=== PATIENT | male | born 1965 | race Caucasian/White ===

== ENCOUNTER 2019-04-19 10:28 | Inpatient (IN) ==
[2019-04-19 11:08] LABS: Basophils # (auto) 0.03 K/uL (0-0.2); Basophils % (auto) 0.3 %; Eosinophils # (auto) 0.02 K/uL (0-0.5); Eosinophils % (auto) 0.2 %; Hematocrit (blood only) 49.8 % (42-52); Hemoglobin 17.8 g/dL (14.0-18.0); Immature Granulocytes # (auto) 0.02 K/uL (0.00-0.02); Immature Granulocytes % (auto) 0.2 %; Lymphocytes % (auto) 16.9 %; Mean Corpuscular Hgb Conc 35.7 g/dL (32-36); Mean Corpuscular Volume 88.8 fL (80-100); Mean Platelet Volume 11.7 fL (7.4-10.4); Monocytes # (auto) 0.95 K/uL (0.11-0.59); Neutrophils # (auto) 6.84 K/uL (1.4-6.5); Neutrophils % (auto) 72.4 %; Platelet Count 226 K/uL (130-400); RDW Coefficient of Variation 12.6 % (11.5-14.5); RDW Standard Deviation 40.6 fL (36.4-46.3); Red Blood Count 5.61 M/uL (4.7-6.1); White Blood Count 9.46 K/uL (4.8-10.8)
--- NOTE | 2019-04-19 11:12 | XRay Report ---
XR chest 1V portable CLINICAL HISTORY: 54 years-old Male presenting with Poss. collapsed lung . TECHNIQUE: Portable upright AP view of the chest was obtained. COMPARISON: 08/19/2013. FINDINGS: Cardiomediastinal silhouette normal. Large right pneumothorax with decreased aeration of the right yonatan ng. Left lung and pleural space clear. No mediastinal shift at this time. Degenerative changes of the thoracic spine. Upper abdomen normal. IMPRESSION: 1. Large right pneumothorax occupying at least 50% of the right hemithorax. Recommend drainage. No e vidence of tension at this time. The report will be called/faxed according to standard departmental protocol for a critical finding. Electronically signed by: Magdaleno Macario M.D. 04/19/2019 11:10 AM
[2019-04-19 11:31] LABS: Alanine Aminotransferase 48 U/L (12-78); Albumin Level 4.5 gm/dl (3.4-5.0); Aspartate Aminotransferase 25 U/L (15-37); BUN Creatinine Ratio 15.5 (10-20); Blood Urea Nitrogen 18 mg/dl (7-18); Calcium 9.4 mg/dl (8.5-10.1); Carbon Dioxide 23 mmol/L (21-32); Chloride 106 mmol/L (98-107); Creatinine Clr Calc Pharmacy 85.7 ml/min; Est GFR (African American) 79.2; Est GFR (Non-African American) 68.4; Glucose 113 mg/dl (70-99); Potassium 3.9 mmol/L (3.5-5.1); Sodium 136 mmol/L (136-145)
[2019-04-19] MEDS ORDERED: LIDOCAINE HCL 1% 20 ML VIAL ONE (11:31)
[2019-04-19 11:32] LABS: Albumin Globulin Ratio 1.4 (0.9-2); Alkaline Phosphatase 107 U/L (45-117); Bilirubin,Total 1.3 mg/dl (0.2-1); Globulin 3.3 gm/dl (2.5-4.0); Total Protein 7.8 gm/dl (6.4-8.2); Troponin I < 0.015 ng/ml (0-0.045)
[2019-04-19] MEDS ORDERED: MIDAZOLAM HCL 5 MG/ML VIAL ONE (11:37)
[2019-04-19] MEDS ORDERED: fentaNYL citrate 100 MCG/2 ML VIAL ONE (11:37)
[2019-04-19] MEDS ORDERED: MIDAZOLAM HCL 5 MG/ML 1 ML VIAL IV STA (11:43)
[2019-04-19] MEDS ORDERED: fentaNYL citrate 100 MCG/2 ML VIAL IV STA (11:44)
--- NOTE | 2019-04-19 11:55 | XRay Report ---
XR chest 1V portable CLINICAL HISTORY: chest tube insertion PNEUMOTHORAX COMPARISON STUDY: 04/19/2019 FINDINGS: The cardiac and distal contours remain stable. There is been interval insertion of a right- sided chest tube. The tip projects over the right posterior fourth rib. There is been reexpansion of the right lung. No significant pneumothorax is visualized. There are right midlung zone atelectatic c hanges.[ IMPRESSION: Interval insertion of a right-sided chest tube with evacuation of the right pneumothorax. Electronically signed by: Elliot Levy M.D. 04/19/2019 11:53 AM
[2019-04-19] MEDS ORDERED: MoRPHine SULFATE 2 MG/ML CARP ONE (11:56)
[2019-04-19 12:27] LABS: INR 1.1 (0.9-1.1); Partial Thromboplastin Ratio 0.9; Partial Thromboplastin Time 25.2 Seconds (21.0-31.0); Prothrombin Time 11.3 Seconds (9.0-12.0)
[2019-04-19] MEDS ORDERED: ONDANSETRON INJ 2 MG/ML 2 ML VIAL IV PRN (13:10)
[2019-04-19] MEDS ORDERED: MoRPHine SULFATE 2 MG/ML CARP IV PRN (13:10)
[2019-04-19] MEDS ORDERED: OXYCODONE HCL IR 5 MG TAB (IMMEDIATE RELEASE) ONE (13:39)
[2019-04-19] MEDS: OXYCODONE HCL IR 5 MG TAB (IMMEDIATE RELEASE) PO PRN ×2 (13:40→20:35)
--- NOTE | 2019-04-19 13:57 | History and Physical Report ---
DATE OF ADMISSION: 04/19/2019 REASON FOR ADMISSION: Spontaneous right pneumothorax. 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 He smoked very little for a short period of time, but quit when he was in his mid 20s. 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 This was just diagnosed via needle biopsy within the last few days. Six days ago after this biopsy, he became short of breath and had right-sided chest pain. A PET scan was performed in [place] for a workup and it was found that he had a large right pneumothorax. He actually felt a bit better in the last few days and his pulse oximetry was 93% on room air; however, he was a bit tachypneic and also was having right-sided chest pain, although improved. I had a long talk with the patient, his and multiple family members in the ER. I was asked to evaluate him for his pneumothorax. PAST MEDICAL HISTORY: 1. Light history of cigarette smoking for approximately 10 years, but quit 30 years ago. 2. History of apparent viral meningitis. 3. Hypercholesterolemia. 4. Hypertension. 5. Posterior circulation cerebrovascular accident. 6. 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 PAST SURGICAL HISTORY: Laryngoscopy with biopsy. MEDICATIONS: 1. Aspirin. 2. Atorvastatin. 3. Plavix. 4. Dronabinol. 5. Erenumab-aooe. 6. Lisinopril. 7. Lorazepam. 8. Pantoprazole. 9. Prednisone. 10. Promethazine. 11. Ranitidine. 12. Tizanidine. 13. Venlafaxine. ALLERGIES: No known drug allergies. SOCIAL HISTORY: The patient is originally from [place], studied at [employer]. He is to his of many years. He smoked cigarettes during age 13, smoked until he was about 23. He was a light smoker. 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 He recently celebrated his 25th anniversary there. FAMILY MEDICAL HISTORY: The patient has 1 child, no grandchildren and the child is healthy. REVIEW OF SYSTEMS: The patient states that he lost a great deal of weight after the stroke several years ago, but his weight has been relatively stable, in fact he feels like he has gained some weight. He denies any trouble with his vision; however, his hearing was impaired by his stroke and that has not changed. He has had no new focal deficits. He had trouble with his balance after his posterior circulation cerebrovascular accident. The patient denies palpitations. He has had right-sided chest pain as noted. He has had no night sweats. He does not have a productive cough. He is hoarse and does have difficulty with dysphagia. He denies any GI or complaints such as nausea or vomiting. He has had no peripheral edema. He has had no wound breakdown. PHYSICAL EXAMINATION: GENERAL: This is a 5 feet 11 inches, 232-pound male who is awake, alert and oriented. HEENT: His extraocular movements are intact. Pupils are equal, round, reactive. Sclerae are anicteric. Tongue is midline. I really cannot see any pharyngeal lesions. NECK: Supple. He has a questionably enlarged left supraclavicular lymph node. He really does not have much in the way of wheezing, but has markedly decreased breath sounds on the right, relative to the left. I do not detect tracheal deviation or neck vein distention. ABDOMEN: Obese, soft, nontender. He has no peripheral edema. No joint effusions. EXTREMITIES: He has easily palpable pedal pulses. NEUROLOGIC: He is awake, alert, oriented, has no real focal deficits. ASSESSMENT AND PLAN: Spontaneous (possibly iatrogenic) right pneumothorax. Given the size of this pneumothorax on chest x-ray (at least 70%), I am going to go ahead and insert a small bore chest tube and admit him. I am also going to ask radiation therapy to see him.
[2019-04-19] MEDS: ACETAMINOPHEN 1,000 MG/100 ML VIAL IV SCH ×3 (14:01→21:10)
--- NOTE | 2019-04-19 14:15 | Operative Report ---
DATE OF OPERATION: 04/19/2019 PREOPERATIVE DIAGNOSIS: Apparent spontaneous right pneumothorax. POSTOPERATIVE DIAGNOSIS: Apparent spontaneous right pneumothorax. PROCEDURE: Insertion of 20-Lithuanian chest tube in the Emergency Room. ANESTHESIA: Local. SURGEON: John Alicea MD EMS MANAGER: jamarcus Peckrk 2. ANESTHESIA: Local with sedation. SPECIFICS OF PROCEDURE: After a long discussion with the patient and his family, consent was obtained. We then gave the patient some Versed and fentanyl intravenously. When he reached in relax state, his right arm was raised above his head and his hand behind his head. He was comfortable. We then prepped and draped in usual sterile fashion and approximately the sixth interspace in the anterior axillary line, a skin wheal was raised with 25-gauge needle and 1% Xylocaine after appropriate timeout have been called. We then made a small incision with a knife and then using a larger needle to anesthetize the intercostal muscles and pleura above the rib. When we got air back on aspiration through the needle, the syringe removed and a soft J-tip guidewire inserted through the needle and the needle removed. A dilator was slid over the guidewire and the guidewire removed. A 20-Lithuanian chest tube with an obturator was then slid over the guidewire to about 20 cm and then the guidewire and inner cannula removed. There was a wallace of air, but it does not appear he has an air leak. We did not attach it to suction. A 0 silk was used to anchor to the patient's skin. Chest x-ray showed expansion of his lung. He tolerated it well except for some minor pain. He will be admitted to our service in the third floor. I attest to the content of the Intraoperative Record and any orders documented therein. Any exceptions are noted below. MTDD
--- NOTE | 2019-04-19 15:12 | Radiation OncologyConsultation ---
Date of Consultation April 19, 2019 Assessment & Plan (1) Squamous cell carcinoma of larynx: Assessment: Mr. 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 The patient recently underwent a biopsy under anesthesia by Dr. Myers and was discharged from the hospital. The patient did have a PET/CT scan completed on 04/18/2019 which confirmed his laryngeal cancer with no evidence of distant metastatic disease; the PET/CT scan did also show a large right pneumothorax. The patient was instructed to come to the emergency room for further work-up and evaluation. The patient was seen and evaluated by Dr. Alicea from thoracic surgery who placed a chest tube and admitted the patient to the hospital. We have been asked to evaluate the nelly ent regarding his head and neck cancer. Treatment Options: 1. Surgical resection 2. Radiation therapy with or without chemotherapy. Recommendations: I have recommended that the patient proceed with outpatient follow-up with the multidisciplinary head and neck tumor board at [facility] in [place], [place]. I would appreciate their recommendations and recommendations from Dr. Myers as well. I do believe the patient would be a potentially good candidate for radiation therapy and would like further guidance regarding the role of chemotherapy from the multidisciplinary head and neck tumor board. Alternatively, we would be in agreement if the tumor board recommends an appropriate surgical procedure for the patient. Plan: 1. We will follow-up with the recommendations from the multidisciplinary head and neck tumor board and coordinate care accordingly. Our contact information was given to the patient and his family in case there is any delay in his care and/or management. If the patient requires radiation therapy, we will see him back in follow-up evaluation to further discuss the role of radiation therapy and to make final recommendations. 2. Patient will continue with scheduled appointments and will plan to be seen at the multidisciplinary head and neck tumor board. 3. Patient's will follow up with ENT tomorrow. 4. Continue all other care as per primary medical service. 5. Patient and family encouraged to call us with any further questions or concerns. Present on Admission?: Yes History of Present Illness Reason for Consultation: Head and Neck Cancer History of Present Illness 03/14/2019. ENT consultation with Dr. Estrella for evaluation of dysphonia. Recommendation for direct flexible diagnostic laryngoscopy. 04/03/2019. Follow-up and diagnostic flexible laryngoscopy with Dr. Estrella. Dr. Estrella recommends biopsy underneath anesthesia for left vocal cord mass with CT of neck as well. 04/05/2019. CT of neck. IMPRESSION. 1. Known left vocal cord paralysis with asymmetric soft tissue fullness and mucosal irregularity involving the left vocal fold and the paraglottic fat. No evidence of cartilage erosion or extralaryngeal soft tissue mass. Imaging findings are nonspecific, but concerning for malignancy. Correlation with direct laryngoscopy and biopsy is recommended. 2. No suspicious cervical lymphadenopathy is identified. 04/12/2019. Microsuspension direct laryngoscopy with biopsy by Dr. Myers. Operative findings: Exophytic mass along left false and true vocal cord and anterior one third. Mass extends into subglottis. Larynx, left vocal cord, biopsy: Invasive squamous cell carcinoma, moderately differentiated, keratinizing. 04/18/2019. PET/CT. IMPRESSION 1. Large right pneumothorax. Minimal shift of the mid trachea and israel to the left suggesting a degree of tension. 2. Left vocal cord squamous cell carcinoma. No metabolically active lymph nodes or distant metastases. 04/19/2019. Patient urged to go to [facility] emergency department for evaluation of pneumothorax. 04/19/2019. Chest x-ray. IMPRESSION: 1. Large right pneumothorax occupying at least 50% of the right hemithorax. Recommend drainage. No evidence of tension at this time. 04/19/2019. Patient admitted with placement of chest tube underneath supervision of Dr. John Alicea. Currently, the patient continues to have some hoarseness. He denies any dysphasia. He states his shortness of breath has improved. He denies any significant cough. Allergies Allergy/AdvReac Type Severity Reaction Status Date / Time No Known Allergies Allergy Unverified 04/19/19 11:40 Home Medications Home Medications Medication Instructions Recorded Confirmed Type aspirin 81 mg PO QAM 04/19/19 04/19/19 History atorvastatin 80 mg PO HS 04/19/19 04/19/19 History clopidogrel 75 mg PO QAM 04/19/19 04/19/19 History dronabinol 5 mg PO AMPM 04/19/19 04/19/19 History erenumab-aooe 140 mg SUBCUT MONTHLY 04/19/19 04/19/19 History fludeoxyglucose F-18 8 mci IV MONTHLY 04/19/19 04/19/19 History lisinopril 10 mg PO QAM 04/19/19 04/19/19 History lorazepam 0.5 mg PO TID PRN 04/19/19 04/19/19 History omega [id number]-fish oil [Fish Oil] 1 cap PO TID 04/19/19 04/19/19 History pantoprazole 20 mg PO QAM 04/19/19 04/19/19 History prednisone 10 mg PO DAILY 04/19/19 04/19/19 History promethazine 25 mg PO Q6H PRN 04/19/19 04/19/19 History ranitidine HCl 150 mg PO QAM 04/19/19 04/19/19 History tizanidine 4 mg PO HS 04/19/19 04/19/19 History venlafaxine 75 mg PO HS 04/19/19 04/19/19 History Patient History Medical History CVA (cerebral vascular accident) Hypertension (Acute) High cholesterol (Acute) Viral meningitis (Acute) Cancer Social History Preferred Language: [place] Communication Ability: Effective 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 Beliefs That Will Affect Care: None Current Living Situation: Spouse Other Information That Helps Us Care for You: No Feels Safe at Home: Yes Safety Concerns: Feels Safe At This Time Smoking Status: Former smoker Tobacco Type: cigarettes Do You Dip or Chew Tobacco: No Second Hand Exposure: No Tobacco Cessation Education Requested by Patient: No Hx Alcohol Use: Yes Alcohol type: beer Hx Substance Use: No Review of Systems Review of Systems: All systems reviewed & are unremarkable except as noted in HPI & below Physical Exam Constitutional: WD/WN, vitals as above Eyes: PERRL, conjunctivae normal, anicteric sclerae ENMT: external ear and nose normal, oropharynx normal Neck: trachea midline, no thyromegaly No cervical adenopathy bilaterally Respiratory: normal respiratory effort, lungs clear to auscultation Cardiovascular: RRR, no murmur, no edema Psychiatric: A+Ox3, euthymic affect Results Additional Studies 04/19/19 10:56 ECG 12 lead EKG Stat XR chest 1V portable Stat 04/19/19 11:43 XR chest 1V portable Stat 04/20/19 06:00 XR chest 1V portable Stat Time Spent Attending This documentation has been prepared in part by, Анна Sorto PA-C, acting as a scribe under my direction. I, Nakul Rabago MD, personally performed the services described and have reviewed the documentation to ensure its accuracy. I spent 35 minutes for this consultation, which included obtaining clinical information, performing a physical exam, recommending a plan of action and answering questions. Greater than 50% of the time spent was direct face to face interaction with the patient.
[2019-04-19] MEDS ORDERED: LORazepam 0.5 MG TAB PO PRN (15:28)
[2019-04-19] MEDS ORDERED: PROMETHAZINE HCL 25 MG TAB PO PRN (15:28)
[2019-04-19] MEDS ORDERED: ERENUMAB AOOE 140 MG SQ SCH (15:30)
[2019-04-19] MEDS ORDERED: [UNRECOGNIZED DRUG - OTHER] IV SCH (15:30)
[2019-04-19] MEDS: KETOROLAC TROMETHAMINE 15 MG/ML VIAL IV PRN (17:25)
[2019-04-19] MEDS: DOCUSATE SODIUM 100 MG CAP PO SCH (20:35)
[2019-04-19] MEDS: DRONABINOL 2.5 MG CAP PO SCH (20:37)
[2019-04-19] MEDS: OMEGA-3 (PURIFIED FISH OIL) 1 GM CAP PO SCH (20:37)
[2019-04-19] MEDS ORDERED: TIZANIDINE HCL 4 MG TABLET PO SCH (21:00)
[2019-04-19] MEDS ORDERED: VENLAFAXINE HCL XR 75 MG CAPXR PO SCH (21:00)
[2019-04-19] MEDS ORDERED: AMITRIPTYLINE HCL 10 MG TAB PO SCH (21:00)
[2019-04-19] MEDS ORDERED: DRONABINOL 2.5 MG CAP PO SCH (21:00)
[2019-04-19] MEDS ORDERED: OMEGA-3 (PURIFIED FISH OIL) 1 GM CAP PO SCH (21:00)
[2019-04-19] MEDS ORDERED: ATORVASTATIN 40 MG TAB PO SCH (21:00)
[2019-04-20] MEDS: KETOROLAC TROMETHAMINE 15 MG/ML VIAL IV PRN (00:16)
[2019-04-20] MEDS: OXYCODONE HCL IR 5 MG TAB (IMMEDIATE RELEASE) PO PRN (04:49)
[2019-04-20] MEDS: ACETAMINOPHEN 1,000 MG/100 ML VIAL IV SCH (05:19)
[2019-04-20 05:58] VITALS: BP 132/84; PULSE 58; TEMP 97.9; O2SAT 94
--- NOTE | 2019-04-20 07:18 | XRay Report ---
XR chest 1V portable CLINICAL HISTORY: 54 years-old Male presenting with pneumothorax. TECHNIQUE: Portable upright AP view of the chest was obtained. COMPARISON: 04/19/2019. FINDINGS: Large bore right pleural drain positioned at the right mid upper lung, slightly retracted or replaced from prior exam. Mildly low lung volumes. Atherosclerosis of the aortic arch and tortuosity of the d escending thoracic aorta. Cardiac silhouette top normal in size. Minimal bibasilar opacities. Allowin g for portable technique and body habitus, no demonstrable pneumothorax on the current exam. No pleur al effusion. Degenerative changes of the thoracic spine. Upper abdomen normal. IMPRESSION: 1. Right pleural drain in place. No demonstrable pneumothorax allowing for portable technique and fidencio dy habitus. 2. Mildly low lung volumes with bibasilar atelectasis. Electronically signed by: Magdaleno Macario M.D. 04/20/2019 7:16 AM
--- NOTE | 2019-04-20 08:14 | XRay Report ---
XR chest 1V portable CLINICAL HISTORY: 54 years-old Male presenting with chest tube removal. TECHNIQUE: Portable upright AP view of the chest was obtained. COMPARISON: 04/20/2019 at 6:49 AM. FINDINGS: There has been interval removal of the right pleural drain. Cardiomediastinal silhouette unchanged. N o focal opacity. No large effusion or pneumothorax. Degenerative changes of the thoracic spine. Upper abdomen normal. IMPRESSION: 1. No pneumothorax status post removal of the right pleural drain. Electronically signed by: Magdaleno Macario M.D. 04/20/2019 8:12 AM
[2019-04-20] MEDS ORDERED: ACETAMINOPHEN 325 MG TAB PO SCH (08:15)
[2019-04-20] MEDS: DRONABINOL 2.5 MG CAP PO SCH (08:41)
[2019-04-20] MEDS: OMEGA-3 (PURIFIED FISH OIL) 1 GM CAP PO SCH (08:42)
[2019-04-20] MEDS: DOCUSATE SODIUM 100 MG CAP PO SCH (08:43)
[2019-04-20] MEDS ORDERED: LISINOPRIL 10 MG TAB PO SCH ×2 (09:00)
[2019-04-20] MEDS ORDERED: PANTOprazole 40 MG TAB PO SCH ×2 (09:00)
[2019-04-20] MEDS ORDERED: ATORVASTATIN 20 MG TAB PO SCH (09:00)
[2019-04-20] MEDS ORDERED: predniSONE 10 MG TABLET PO SCH (09:00)
[2019-04-20] MEDS ORDERED: ASPIRIN 81 MG CHEW PO SCH (09:00)
[2019-04-20] MEDS ORDERED: CLOPIDOGREL BISULFATE 75 MG TAB PO SCH (09:00)
--- NOTE | 2019-04-20 21:29 | Emergency Department Note ---
Entered by Sandra Sams acting as a scribe for History of Present Illness General Chief complaint: Shortness of Breath/Dyspnea Stated complaint: CHEST PAIN Time Seen by Provider: 04/19/19 11:00 Source: patient and family History of Present Illness Provider complaint: Shortness of breath Onset (ago): hour(s) Radiation: flank (right) Pain Consistency: + other (episode) Exacerbated By: + other (breathing) Associated symptoms: + cough (productive with clear sputum) and + fever/chills (intermittent fever) The patient is a 54 year old male who presents to the ED with complaints of an episode of shortness of breath that began last week. The patient states that he has pain on his right side that is exacerbated by breathing. The patient notes a productive cough with clear sputum and an intermittent fever. Patient states last week he had a biopsy of a lesion noted on his vocal cords. States the pain and trouble breathing started after that. Patient does note he has had a mild cough, nonproductive. Denies fevers or chills. States he does have chronic issues with his voice which is what prompted the investigation by ENT which led to discovery of a lesion on the vocal cords which prompted the biopsy. Patient underwent an outpatient PET scan yesterday to continue his evaluation for cancer, and was called today with the results of the PET scan that showed a pneumothorax and was instructed to immediately come to the emergency room. Home Medications Home Medications Medication Instructions Recorded Confirmed Type aspirin 81 mg PO QAM 04/19/19 04/19/19 History atorvastatin 80 mg PO HS 04/19/19 04/19/19 History clopidogrel 75 mg PO QAM 04/19/19 04/19/19 History dronabinol 5 mg PO AMPM 04/19/19 04/19/19 History erenumab-aooe 140 mg SUBCUT MONTHLY 04/19/19 04/19/19 History fludeoxyglucose F-18 8 mci IV MONTHLY 04/19/19 04/19/19 History lisinopril 10 mg PO QAM 04/19/19 04/19/19 History lorazepam 0.5 mg PO TID PRN 04/19/19 04/19/19 History omega 5-[id number]-pvu-fish oil [Fish Oil] 1 cap PO TID 04/19/19 04/19/19 History pantoprazole 20 mg PO QAM 04/19/19 04/19/19 History prednisone 10 mg PO DAILY 04/19/19 04/19/19 History promethazine 25 mg PO Q6H PRN 04/19/19 04/19/19 History ranitidine HCl 150 mg PO QAM 04/19/19 04/19/19 History tizanidine 4 mg PO HS 04/19/19 04/19/19 History venlafaxine 75 mg PO HS 04/19/19 04/19/19 History Allergies Allergy/AdvReac Type Severity Reaction Status Date / Time No Known Allergies Allergy Unverified 04/19/19 11:40 Past Med/Surg History Medical History CVA (cerebral vascular accident) Hypertension (Acute) High cholesterol (Acute) Viral meningitis (Acute) Cancer Social History Preferred Language: Estonian Communication Ability: Effective 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 and A total of 10 systems reviewed and were otherwise negative Physical Exam Vital Signs Vital Signs - 24 hr 04/19/19 10:38 04/19/19 10:48 04/19/19 10:51 Temperature 36.6 C Temperature Source Oral Sepsis Recent Fever Within 48 Hours No Sepsis Action Taken by Nursing No Action Required Pulse Rate 84 98 H Pulse Rate [Finger] 96 H Pulse Rate from SpO2 Sensor 99 H Respiratory Rate 20 24 17 Blood Pressure 150/106 H 178/109 H Blood Pressure [Right Arm] 178/109 H Blood Pressure Mean 120 132 Blood Pressure Mean [Right Arm] 132 Blood Pressure Position Sitting Pulse Oximetry 97 92 94 Oxygen Delivery Method Room Air Nasal Cannula Room Air Oxygen Flow Rate 2 04/19/19 10:53 04/19/19 10:58 04/19/19 11:00 Temperature Temperature Source Sepsis Recent Fever Within 48 Hours Sepsis Action Taken by Nursing Pulse Rate 97 H 94 H Pulse Rate [Finger] Pulse Rate from SpO2 Sensor 96 H 90 Respiratory Rate 23 16 Blood Pressure Blood Pressure [Right Arm] Blood Pressure Mean Blood Pressure Mean [Right Arm] Blood Pressure Position Pulse Oximetry 92 92 94 Oxygen Delivery Method Nasal Cannula Room Air Nasal Cannula Oxygen Flow Rate 2 2 04/19/19 11:01 04/19/19 11:10 04/19/19 11:16 Temperature Temperature Source Sepsis Recent Fever Within 48 Hours Sepsis Action Taken by Nursing Pulse Rate 97 H 93 H 100 H Pulse Rate [Finger] Pulse Rate from SpO2 Sensor 97 H 88 100 H Respiratory Rate 19 17 23 Blood Pressure 178/154 H 193/130 H Blood Pressure [Right Arm] Blood Pressure Mean 162 151 Blood Pressure Mean [Right Arm] Blood Pressure Position Pulse Oximetry 95 94 97 Oxygen Delivery Method Nasal Cannula Nasal Cannula Nasal Cannula Oxygen Flow Rate 2 2 2 04/19/19 11:20 04/19/19 11:30 Temperature Temperature Source Sepsis Recent Fever Within 48 Hours Sepsis Action Taken by Nursing Pulse Rate 88 80 Pulse Rate [Finger] Pulse Rate from SpO2 Sensor 84 80 Respiratory Rate 18 15 Blood Pressure Blood Pressure [Right Arm] Blood Pressure Mean Blood Pressure Mean [Right Arm] Blood Pressure Position Pulse Oximetry 96 95 Oxygen Delivery Method Nasal Cannula Nasal Cannula Oxygen Flow Rate 2 2 GENERAL: alert, well appearing, well nourished, no distress, non-toxic EYE EXAM: normal conjunctiva, PERRL and EOM's grossly intact OROPHARYNX: no exudate, no erythema, lips, buccal mucosa, and tongue normal and mucous membranes are moist, hoarse quality to voice. NECK: supple, no nuchal rigidity, no adenopathy, non-tender, no tracheal deviation LUNGS: No breath sounds heard over right chest. Left lung field clear without w/r/r. HEART: no murmurs, S1 normal and S2 normal ABDOMEN: abdomen soft, non-tender, normo-active bowel sounds, no masses, no rebound or guarding. BACK: Back is symmetrical on inspection and there is no deformity, no midline tenderness, no CVA tenderness. SKIN: no rashes and no bruising UPPER EXTREMITIES: upper extremities are grossly normal. FROM, nml pulses b/l. LOWER EXTREMITIES: No pitting edema. FROM, nml pulses b/l. NEURO EXAM: Normal sensorium, cranial nerves II-XII grossly intact, normal speech, no gross weakness of arms, no gross weakness of legs. Course 1101: Past medical records reviewed. The patient was evaluated in room A7. A complete history and physical exam was performed. 1120: I reevaluated the patient and updated him on his test results. 1124: Dr. Alicea came to to evaluate the patient. 1127: I discussed the case with Dr. Alicea- Thoracic Surgeon. He will evaluate the patient for further management. Consultations Consultation #1: I discussed the case with Dr. Alicea- Thoracic Surgeon. He will evaluate the patient for further management. Time: 11:27 Administered Medications Discontinued Medications Acetaminophen (Tylenol) 650 mg PO Q6H [facility] Stop: 05/20/19 08:14 Last Admin: 04/20/19 08:41 Dose: 650 mg Documented by: [id number] Amitriptyline HCl (Elavil) 20 mg PO HS [facility] Stop: 05/19/19 20:59 Last Admin: 04/19/19 20:36 Dose: 20 mg Documented by: [id number] Aspirin (Aspirin Chew) 81 mg PO QAM [facility] Stop: 05/20/19 08:59 Last Admin: 04/20/19 08:44 Dose: 81 mg Documented by: [id number] Atorvastatin Calcium (Lipitor) 80 mg PO [facility] Stop: 05/19/19 20:59 Last Admin: 04/19/19 20:36 Dose: 80 mg Documented by: [id number] [facility]) [facility] [place]: 05/20/19 08:59 Last Admin: 04/20/19 08:44 Dose: Not Given Documented by: [id number] Docusate Sodium (Colace) 100 mg PO BID [facility] Stop: 05/19/19 20:59 Last Admin: 04/20/19 08:43 Dose: 100 mg Documented by: [id number] Admin: 04/19/19 20:35 Dose: 100 mg Documented by: [id number] Dronabinol (Marinol) 5 mg PO BID [facility] Stop: 05/19/19 20:59 Last Admin: 04/20/19 08:41 Dose: 5 mg Documented by: [id number] Admin: 04/19/19 20:37 Dose: 5 mg Documented by: [id number] Fentanyl Citrate (Fentanyl Citrate) Confirm Administered Dose 100 mcg .ROUTE .STK-MED ONE Stop: 04/19/19 11:38 Last Increment: 04/19/19 11:42 Dose: 25 mcg Documented by: [id number] Fentanyl Citrate (Fentanyl Citrate) 25 mcg IV NOW STA Stop: 04/19/19 11:45 Last Admin: 04/19/19 11:54 Dose: Not Given Documented by: [id number] Fish Oil ([place]-3 (Purified Fish Oil)) 1 gm PO TID [facility] Stop: 05/19/19 20:59 Last Admin: 04/20/19 08:42 Dose: 1 gm Documented by: [id number] Admin: 04/19/19 20:37 Dose: 1 gm Documented by: [id number] Acetaminophen ([facility]) 1,000 mg in 100 mls @ 400 mls/hr IV Q8H [facility] Stop: 05/19/19 13:59 Last Infusion: 04/20/19 05:41 Dose: 0 mls/hr Documented by: [id number] Admin: 04/20/19 05:19 Dose: 400 mls/hr Documented by: [id number] Infusion: 04/19/19 21:28 Dose: 0 mls/hr Documented by: [id number] Admin: 04/19/19 21:10 Dose: 400 mls/hr Documented by: [id number] Admin: 04/19/19 14:25 Dose: Not Given Documented by: [id number] Infusion: 04/19/19 14:16 Dose: 0 mls/hr Documented by: [id number] Admin: 04/19/19 14:01 Dose: 400 mls/hr Documented by: [id number] Ketorolac Tromethamine (Toradol) 15 mg IV Q6H PRN PRN Reason: Pain Stop: 04/24/19 13:09 Last Admin: 04/20/19 00:16 Dose: 15 mg Documented by: [id number] Admin: 04/19/19 17:25 Dose: 15 mg Documented by: [id number] Lidocaine HCl (Xylocaine 1% (Local)) Confirm Administered Dose 20 ml .ROUTE .STK-MED ONE Stop: 04/19/19 11:32 Last Admin: 04/19/19 11:42 Dose: 20 ml Documented by: [id number] Lisinopril (Zestril) 10 mg PO DAILY [facility] Stop: 05/20/19 08:59 Last Admin: 04/20/19 08:42 Dose: 10 mg Documented by: [id number] Midazolam HCl (Versed) Confirm Administered Dose 10 mg .ROUTE .STK-MED ONE Stop: 04/19/19 11:38 Last Increment: 04/19/19 11:42 Dose: 2 mg Documented by: [id number] Midazolam HCl (Versed) 2 mg IV NOW STA Stop: 04/19/19 11:44 Last Admin: 04/19/19 11:54 Dose: Not Given Documented by: [id number] Morphine Sulfate (Morphine Sulfate) Confirm Administered Dose 2 mg .ROUTE .STK- MED ONE Stop: 04/19/19 11:57 Last Admin: 04/19/19 11:57 Dose: 2 mg Documented by: [id number] Oxycodone HCl (Roxicodone Immediate Rel) 5 mg PO Q6H PRN PRN Reason: Pain Stop: 05/03/19 13:09 Last Admin: 04/20/19 04:49 Dose: 5 mg Documented by: [id number] Admin: 04/19/19 20:35 Dose: 5 mg Documented by: [id number] Admin: 04/19/19 13:40 Dose: 5 mg Documented by: [id number] Oxycodone HCl (Roxicodone Immediate Rel) Confirm Administered Dose 5 mg .ROUTE .STK-MED ONE Stop: 04/19/19 13:40 Last Admin: 04/19/19 13:56 Dose: Not Given Documented by: [id number] Pantoprazole Sodium (Protonix) 40 mg PO DAILY [facility] Stop: 05/20/19 08:59 Last Admin: 04/20/19 08:42 Dose: 40 mg Documented by: [id number] Prednisone (Prednisone) 60 mg PO DAILY [facility]; Taper Stop: 05/05/19 08:59 Last Admin: 04/20/19 08:41 Dose: 60 mg Documented by: [id number] Ranitidine HCl (Zantac) 150 mg PO QAM [facility] Stop: 05/20/19 08:59 Last Admin: 04/20/19 08:42 Dose: 150 mg Documented by: [id number] Tizanidine HCl (Zanaflex) 4 mg PO HS [facility] Stop: 05/19/19 20:59 Last Admin: 04/19/19 20:37 Dose: 4 mg Documented by: [id number] Venlafaxine HCl (Effexor Extended Release) 75 mg PO HS [facility] Stop: 05/19/19 20:59 Last Admin: 04/19/19 20:36 Dose: 75 mg Documented by: [id number] Medical Decision Making Differential Diagnosis Differential diagnosis: Etiologies such as infections, reactive airway disease, COPD, pneumonia, pleural effusion, pulmonary edema, ARDS, pneumothorax, CHF, cardiac ischemia, cardiac tamponade, dysrhythmia, anemia, pulmonary embolism, musculoskeletal, gastrointestinal process, as well as others were entertained. Medical Records Attestation: I reviewed the patient's medical records. Home Medications Current Medication List: was personally reviewed by me Laboratory Data Attestation: I reviewed the patient's lab results. Result diagrams: 04/19/19 10:50 04/19/19 10:50 Lab Results 04/19/19 04/19/19 04/19/19 Range/Units 10:50 10:50 10:50 WBC 9.46 (4.8-10.8) K/uL RBC 5.61 (4.7-6.1) M/uL Hgb 17.8 (14.0-18.0) g/dL Hct 49.8 (42-52) % MCV 88.8 (80-100) fL MCH 31.7 (25-34) pg MCHC 35.7 (32-36) g/dL RDW Std Deviation 40.6 (36.4-46.3) fL RDW Coeff of [place] 12.6 (11.5-14.5) % Plt Count 226 (130-400) K/uL MPV 11.7 H (7.4-10.4) fL Immature Gran % (Auto) 0.2 % Neut % (Auto) 72.4 % Lymph % (Auto) 16.9 % [place] % (Auto) 10.0 % Eos % (Auto) 0.2 % Baso % (Auto) 0.3 % Immature Gran # (Auto) 0.02 (0.00-0.02) K/uL Neut # (Auto) 6.84 H (1.4-6.5) K/uL Lymph # (Auto) 1.60 (1.2-3.4) K/uL [place] # (Auto) 0.95 H (0.11-0.59) K/uL Eos # (Auto) 0.02 (0-0.5) K/uL Baso # (Auto) 0.03 (0-0.2) K/uL PT Cancelled INR Cancelled APTT Cancelled PTT Ratio Cancelled Sodium 136 (136-145) mmol/L Potassium 3.9 (3.5-5.1) mmol/L Chloride 106 (98-107) mmol/L Carbon Dioxide 23 (21-32) mmol/L Anion Gap 7.0 (3-11) BUN 18 (7-18) mg/dl Creatinine 1.19 (0.6-1.4) mg/dl Est Cr Clr Drug Dosing 85.7 ml/min Est GFR ( Amer) 79.2 Est GFR (Non-Af Amer) 68.4 BUN/Creatinine Ratio 15.5 (10-20) Glucose 113 H (70-99) mg/dl Calcium 9.4 (8.5-10.1) mg/dl Total Bilirubin 1.3 H (0.2-1) mg/dl AST 25 (15-37) U/L ALT 48 (12-78) U/L Alkaline Phosphatase 107 (45-117) U/L Troponin I < 0.015 (0-0.045) ng/ml Total Protein 7.8 (6.4-8.2) gm/dl Albumin 4.5 (3.4-5.0) gm/dl Globulin 3.3 (2.5-4.0) gm/dl Albumin/Globulin Ratio 1.4 (0.9-2) Specimen Hemolysis Imaging Data Radiologist's Impression: Radiology results as stated below per my review and the radiologist's interpretation: XR chest 1V portable (#1) CLINICAL HISTORY: 54 years-old Male presenting with Poss. collapsed lung . TECHNIQUE: Portable upright AP view of the chest was obtained. COMPARISON: 08/19/2013. FINDINGS: Cardiomediastinal silhouette normal. Large right pneumothorax with decreased aeration of the right lung. Left lung and pleural space clear. No mediastinal shift at this time. Degenerative changes of the thoracic spine. Upper abdomen normal. IMPRESSION: 1. Large right pneumothorax occupying at least 50% of the right hemithorax. Recommend drainage. No evidence of tension at this time. The report will be called/faxed according to standard departmental protocol for a critical finding. Electronically signed by: Magdaleno Macario M.D. 04/19/2019 11:10 AM XR chest 1V portable (#2) CLINICAL HISTORY: chest tube insertion PNEUMOTHORAX COMPARISON STUDY: 04/19/2019 FINDINGS: The cardiac and distal contours remain stable. There is been interval insertion of a right-sided chest tube. The tip projects over the right posterior fourth rib. There is been reexpansion of the right lung. No significant pneumothorax is visualized. There are right midlung zone atelectatic changes.[ IMPRESSION: Interval insertion of a right-sided chest tube with evacuation of the right pneumothorax. Electronically signed by: Elliot Levy M.D. 04/19/2019 11:53 AM ECG Data Attestation: I personally reviewed and interpreted this ECG as follows: Rate (beats per minute): 88 Rhythm: sinus with SA Findings: + other (normal interval) and + left axis deviation; no PAC, no PVC, no ST depression, no ST elevation, no acute ischemic change and no ectopy Blood Pressure Blood Pressure Findings: Elevated blood pressure Blood Pressure Disposition: further management by hospitalist KENNETH Benitez Patient referred to the ED after outpatient routine testing revealed large pneumothorax. Patient presented with complaints of chest pain or shortness of breath for 1 week ever since a biopsy of a lesion on the vocal cords performed to [facility]. Review of this operative note was performed. Immediate chest x- ray performed here which should confirm findings of large right pneumothorax. Patient hemodynamically stable, not hypoxic, no tracheal deviation, no crepitus of the chest wall, however did have minimal breath sounds to the right chest. No fevers chills, basic labs sent, and given daytime hours, patient's use of antiplatelet agents, and suspected timeframe of injury, I called and discussed the case with thoracic surgery, Dr. Mcnally who came and evaluated the patient at bedside. Dr. Alicea performed thoracostomy at bedside after discussion with patient and admitted the patient for continued monitoring due to his increased risk of expansion associated pulmonary edema. Patient hemodynamically stable in the emergency room. Labs reassuring. Patient tolerated procedure well. Impression & Plan Pneumothorax, Hypertension, Squamous cell carcinoma of larynx, Chest pain Discharge Plan Visit Data *Final* Discharge Date/Time: 04/19/19 12:30 Chief Complaint: Shortness of Breath/Dyspnea Stated Complaint: CHEST PAIN ED Provider: Astrid Hawthorne Discharge Problem: Pneumothorax, Hypertension, Squamous cell carcinoma of larynx, Chest pain Patient Disposition: Admitted As Inpatient Condition: Good Discharge Instructions Interventions: ED Discharge Assessment Last Done: 04/19/19 12:30 Discharge Problem: Pneumothorax Qualifiers: Pneumothorax type: postprocedural Qualified Code(s): J95.811 - Postprocedural pneumothorax Hypertension Qualifiers: Hypertension type: essential hypertension Qualified Code(s): I10 - Essential (primary) hypertension Chest pain Qualifiers: Chest pain type: other chest pain Qualified Code(s): R07.89 - Other chest pain The scribe's documentation has been prepared under my direction and personally reviewed by me in its entirety. I confirm that the note above accurately reflects all work, treatment, procedures, and medical decision making performed by me.
--- NOTE | 2019-04-21 01:32 | Discharge Summary ---
DISCHARGE DIAGNOSES: 1. Spontaneous/iatrogenic right pneumothorax. 2. 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 3. Status post cerebrovascular accident. HOSPITAL COURSE: This is a very nice 54-year-old male who suffered a cerebrovascular accident a few years ago, he has posterior circulation and was recently diagnosed with a squamous cell carcinoma of the supraglottic area. He states that he developed right chest pain and shortness of breath after this several days ago and was found to have a pneumothorax on PET scan yesterday. He presented to the Emergency Room and had at least a 70% pneumothorax. Given that, I felt it would be best if we placed a tube and a 20-[place] chest tube was placed in the Emergency Room without difficulty. He tolerated that quite well and really had very little in the way of pain. It looked like he was ready to go home after we drained it; however, he had a small air leak which resolved overnight. I removed his chest tube and his chest x-ray looked much improved on the morning after admission. He had been ambulating in the hallways, tolerating a regular diet. I went ahead and discharged him from the hospital and we will see him back in the office in a week with an x-ray for 1 more visit.
== END 2019-04-20 09:05 | disposition home or self-care (01) | DRG 201 ==
LOC: ED 10:28 → 3W 11:39

== ENCOUNTER 2019-05-26 20:49 | Observation (INO) ==
[2019-05-26 22:12] LABS: Basophils # (auto) 0.03 K/uL (0-0.2); Basophils % (auto) 0.3 %; Eosinophils # (auto) 0.14 K/uL (0-0.5); Eosinophils % (auto) 1.5 %; Hemoglobin 15.1 g/dL (14.0-18.0); Immature Granulocytes # (auto) 0.02 K/uL (0.00-0.02); Immature Granulocytes % (auto) 0.2 %; Lymphocytes # (auto) 1.61 K/uL (1.2-3.4); Lymphocytes % (auto) 16.8 %; Mean Corpuscular Hgb Conc 34.3 g/dL (32-36); Mean Corpuscular Volume 90.7 fL (80-100); Mean Platelet Volume 11.5 fL (7.4-10.4); Monocytes # (auto) 1.12 K/uL (0.11-0.59); Monocytes % (auto) 11.7 %; Neutrophils # (auto) 6.64 K/uL (1.4-6.5); Neutrophils % (auto) 69.5 %; Platelet Count 339 K/uL (130-400); RDW Standard Deviation 42.6 fL (36.4-46.3); Red Blood Count 4.85 M/uL (4.7-6.1); White Blood Count 9.56 K/uL (4.8-10.8)
[2019-05-26 22:28] LABS: INR 1.1 (0.9-1.1); Partial Thromboplastin Time 26.5 Seconds (21.0-31.0); Prothrombin Time 10.9 Seconds (9.0-12.0)
[2019-05-26 22:31] LABS: Alanine Aminotransferase 34 U/L (12-78); Albumin Level 3.3 gm/dl (3.4-5.0); Aspartate Aminotransferase 19 U/L (15-37); Blood Urea Nitrogen 17 mg/dl (7-18); Calcium 8.8 mg/dl (8.5-10.1); Carbon Dioxide 28 mmol/L (21-32); Chloride 102 mmol/L (98-107); Creatinine Clr Calc Pharmacy 112.1 ml/min; Est GFR (Non-African American) 89.8; Glucose 114 mg/dl (70-99); Magnesium 2.4 mg/dl (1.8-2.4); Potassium 3.6 mmol/L (3.5-5.1); Sodium 138 mmol/L (136-145)
[2019-05-26 22:38] LABS: Appearance Urine Clear (Clear); Bilirubin Urine Negative (Negative); Blood Urine Negative (Negative); Color Urine Dark Yellow; Glucose Urine UA Negative (Negative); Ketones Urine Trace (Negative); Leukocyte Esterase Urine Negative (Negative); Nitrite Urine Negative (Negative); Protein Urine Negative (Negative); Specific Gravity Urine 1.031 (1.000-1.030); Urobilinogen Urine Negative (Negative); pH Urine 5.5 (4.5-7.5)
[2019-05-26 22:41] LABS: Albumin Globulin Ratio 0.9 (0.9-2); Alkaline Phosphatase 99 U/L (45-117); Bilirubin,Total 0.6 mg/dl (0.2-1); Globulin 3.5 gm/dl (2.5-4.0); Total Protein 6.8 gm/dl (6.4-8.2); Troponin I < 0.015 ng/ml (0-0.045)
[2019-05-26] MEDS ORDERED: ALBUT/IPRATROP 3MG/0.5MG NEB 3 ML VIAL ONE (23:13)
[2019-05-27] MEDS ORDERED: PIPERACILL/TAZOBAC CONSULT ACTIVE PRN (00:28)
[2019-05-27] MEDS ORDERED: PIPERACILLIN/TAZOBACTAM 4.5 GM/120 ML BAG IV ONE (00:28)
[2019-05-27] MEDS ORDERED: ALBUT/IPRATROP 3MG/0.5MG NEB 3 ML VIAL NEB STA (01:21)
--- NOTE | 2019-05-27 01:22 | History & Physical Report ---
Date of Service May 27, 2019 Assessment & Plan (1) Recurrent syncope: Secondary to laryngeal irritation/cough symptoms hx laryngeal cancer ongoing chemoradiation Recent tracheostomy tube placement/replacement possible aspiration pneumonitis No sepsis. Rule out orthostasis, cardiac dysfunction hx CVA as per records hypertension, stable hyperlipidemia on statin Rx PVD as per records chronic migraine, symptoms at baseline mood disorder, at baseline past tobacco abuse OBS Medical telemetry Check orthostatic vitals TTE RE recurrent syncope Augmentin for aspiration pneumonitis Aspiration precautions Swallow eval Respiratory therapy consult for tracheostomy care education as per patient request DVT prophylaxis. Lovenox subcu Full code Patient's requesting updates from providers. Ms. Terrell Chappell, contact #[phone]. History of Present Illness Chief Complaint: recurrent syncope Primary Care Provider: Karley Morris DO History obtained from patient, family, and records. Limited history from patient secondary to tracheostomy. Medical history significant for laryngeal cancer undergoing chemoradiation, history pneumothorax, CVA, hypertension, hyperlipidemia, PVD, LORRIE as per records, chronic migraine, mood disorder, prediabetes as per records, past tobacco abuse. Patient found to have laryngeal cancer last March 2019. Currently receiving chemoradiation. Patient admitted at [facility] from May 17-2018 for elective tracheostomy/PEG tube placement in anticipation of airway, swallowing problems following radiotherapy. Stay complicated by inadvertent tracheostomy tube false tracking and left pneumothorax/pneumoperitoneum status post chest tube placement. Syncopal event noted during tracheostomy tube change at bedside as per during confinement. Patient still allowed regular diet on discharge, PEG tube feedings on patient discretion. Yesterday morning at home patient junky cough symptoms which caused patient to pass out. No witnessed seizures, tongue biting, urinary incontinence. Near syncopal event every time he would cough as per patient. No chest pain, no S OB, no fever, no chills. Usual migraine headaches. Absent airflow from tracheostomy. Tracheostomy tube noted to be dislodged at [facility] ER. Adjustable tracheostomy tube placed by ENT team. Transient syncopal episode during tracheostomy tube placement. Patient discharged on cough suppressants from the emergency room. At home, patient had another syncopal event after coughing. At the ER, patient received IV Zosyn for possible pneumonia. Medical History as above Surgical History : Laryngoscopy, tonsillectomy, vascular procedure, ASD/PFO closure, tracheostomy, PEG tube placement Family History : Heart disease, colon cancer, diabetes Personal/Social history : Past tobacco abuse, occasional EtOH intake, disabled Allergies Allergy/AdvReac Type Severity Reaction Status Date / Time No Known Allergies Allergy Verified 05/26/19 21:53 Home Medications Home Medications Medication Instructions Recorded Confirmed Type aspirin 81 mg PO QAM 04/19/19 05/26/19 History atorvastatin 80 mg PO HS 04/19/19 05/26/19 History clopidogrel 75 mg PO QAM 04/19/19 05/26/19 History dronabinol 5 mg PO BIDM 04/19/19 05/26/19 History erenumab-aooe 140 mg SUBCUT MONTHLY 04/19/19 05/26/19 History lisinopril 10 mg PO QAM 04/19/19 05/26/19 History lorazepam 0.5 mg PO TID PRN 04/19/19 05/26/19 History omega 9-gyc-yms-fish oil [Fish Oil] 1 cap PO BID 04/19/19 05/26/19 History pantoprazole 20 mg PO DAILYBB 04/19/19 05/26/19 History promethazine 25 mg PO Q4H PRN 04/19/19 05/26/19 History ranitidine HCl 150 mg PO QAM 04/19/19 05/26/19 History tizanidine 4 - 8 mg PO HS 04/19/19 05/26/19 History venlafaxine 75 mg PO HS 04/19/19 05/26/19 History Complete Prostate Health 1 tab PO DAILY 05/26/19 05/26/19 History codeine-guaifenesin 5 ml PO Q6H PRN 05/26/19 05/26/19 History ondansetron HCl [Zofran] 8 mg PO Q8 PRN 05/26/19 05/26/19 History Past Med/Surg History Medical History CVA (cerebral vascular accident) 07/2013--vision deficits, balance deficits, headaches--follows with Dr. Shepard, on plavix Hypertension (Acute) High cholesterol (Acute) Anxiety Difficult airway for intubation per [facility] after throat biopsy GERD (gastroesophageal reflux disease) Hearing deficit On anticoagulant therapy plavix daily Sleep apnea cpap Syncopal episodes had one last night 05/08/19 "turned blue and passed out" pt refused to go to ER Throat cancer 03/2019--just diagnosed, to start radiation 05/15/19 Surgical History History of biopsy throat to diagnose cancer--lung was punctured during procedure and had to have a chest tube. Pt was also informed that he "had a difficulty airway". History of cardiac cath 2012--no stents History of chest tube placement 04/19/2019 History of colonoscopy History of tonsillectomy History of tooth extraction History of wisdom tooth extraction Status post myringotomy with tube placement of both ears Family History Father Family history of diabetes mellitus Family hx of colon cancer Other No family history of adverse response to anesthesia Social History Preferred Language: Faro[place] Communication Ability: Effective Communication Ability Comment: Not using speaking voice due to new trach Junior Underwriter Required: No Beliefs That Will Affect Care: None Current Living Situation: Spouse Feels Safe at Home: Yes Safety Concerns: Feels Safe At This Time Smoking Status: Former smoker Tobacco Type: cigarettes ; Second Hand Exposure: No ; Hx Alcohol Use: Yes Alcohol type: beer and hard liquor Hx Substance Use: No Review of Systems Review of Systems: Could not be reliably obtained due to limited verbal output secondary to tracheostomy Physical Exam Physical Exam: GENERAL: Comfortable, slightly anxious, obese, no respiratory distress, episodic coughing SKIN: Normal color, warm HEENT: Alopecia, pink palpebral conjunctivae, no ptosis, dry buccal mucosa NECK : Supple, short neck, tracheostomy tube in place, no tenderness CHEST : Expiratory wheezes , no tenderness HEART : RRR, no obvious murmurs ABDOMEN: Some distention, PEG tube in place, nontender EXTREMITIES : No LE swelling/tenderness, no other conspicuous deformities noted NEUROLOGIC : Coherent, no facial asymmetry, gait and stance not assessed Results & Data Vital Signs (Past 12 Hours) Vital Signs Temp Pulse Pulse Pulse Resp BP BP 05/27/19 00:06 84 22 05/27/19 00:05 76 22 120/83 05/26/19 20:51 36.9 C 80 20 122/81 Pulse Ox 05/27/19 00:06 94 05/27/19 00:05 98 05/26/19 20:51 98 Laboratory Results Laboratory Results WBC 9.56 K/uL (4.8-10.8) 05/26/19 21:50 RBC 4.85 M/uL (4.7-6.1) 05/26/19 21:50 Hgb 15.1 g/dL (14.0-18.0) 05/26/19 21:50 Hct 44.0 % (42-52) 05/26/19 21:50 MCV 90.7 fL (80-100) 05/26/19 21:50 MCH 31.1 pg (25-34) 05/26/19 21:50 MCHC 34.3 g/dL (32-36) 05/26/19 21:50 RDW Std Deviation 42.6 fL (36.4-46.3) 05/26/19 21:50 RDW Coeff of [place] 13.0 % (11.5-14.5) 05/26/19 21:50 Plt Count 339 K/uL (130-400) 05/26/19 21:50 MPV 11.5 fL (7.4-10.4) H 05/26/19 21:50 Immature Gran % (Auto) 0.2 % 05/26/19 21:50 Neut % (Auto) 69.5 % 05/26/19 21:50 Lymph % (Auto) 16.8 % 05/26/19 21:50 [place] % (Auto) 11.7 % 05/26/19 21:50 Eos % (Auto) 1.5 % 05/26/19 21:50 Baso % (Auto) 0.3 % 05/26/19 21:50 Immature Gran # (Auto) 0.02 K/uL (0.00-0.02) 05/26/19 21:50 Neut # (Auto) 6.64 K/uL (1.4-6.5) H 05/26/19 21:50 Lymph # (Auto) 1.61 K/uL (1.2-3.4) 05/26/19 21:50 [place] # (Auto) 1.12 K/uL (0.11-0.59) H 05/26/19 21:50 Eos # (Auto) 0.14 K/uL (0-0.5) 05/26/19 21:50 Baso # (Auto) 0.03 K/uL (0-0.2) 05/26/19 21:50 PT 10.9 Seconds (9.0-12.0) 05/26/19 21:50 INR 1.1 (0.9-1.1) 05/26/19 21:50 APTT 26.5 Seconds (21.0-31.0) 05/26/19 21:50 PTT Ratio 1.0 05/26/19 21:50 Sodium 138 mmol/L (136-145) 05/26/19 21:50 Potassium 3.6 mmol/L (3.5-5.1) 05/26/19 21:50 Chloride 102 mmol/L (98-107) 05/26/19 21:50 Carbon Dioxide 28 mmol/L (21-32) 05/26/19 21:50 Anion Gap 8.0 (3-11) 05/26/19 21:50 BUN 17 mg/dl (7-18) 05/26/19 21:50 Creatinine 0.95 mg/dl (0.6-1.4) 05/26/19 21:50 Est Cr Clr Drug Dosing 112.1 ml/min 05/26/19 21:50 Est GFR ( Amer) 104.0 05/26/19 21:50 Est GFR (Non-Af Amer) 89.8 05/26/19 21:50 BUN/Creatinine Ratio 18.0 (10-20) 05/26/19 21:50 Glucose 114 mg/dl (70-99) H 05/26/19 21:50 Calcium 8.8 mg/dl (8.5-10.1) 05/26/19 21:50 Magnesium 2.4 mg/dl (1.8-2.4) 05/26/19 21:50 Total Bilirubin 0.6 mg/dl (0.2-1) 05/26/19 21:50 AST 19 U/L (15-37) 05/26/19 21:50 ALT 34 U/L (12-78) 05/26/19 21:50 Alkaline Phosphatase 99 U/L (45-117) 05/26/19 21:50 Troponin I < 0.015 ng/ml (0-0.045) 05/26/19 21:50 Total Protein 6.8 gm/dl (6.4-8.2) 05/26/19 21:50 Albumin 3.3 gm/dl (3.4-5.0) L 05/26/19 21:50 Globulin 3.5 gm/dl (2.5-4.0) 05/26/19 21:50 Albumin/Globulin Ratio 0.9 (0.9-2) 05/26/19 21:50 TSH 3.860 uIu/ml (0.300-4.500) 05/26/19 21:50 Urine Color Dark Yellow 05/26/19 21:45 Urine Appearance Clear (Clear) 05/26/19 21:45 Urine pH 5.5 (4.5-7.5) 05/26/19 21:45 Ur Specific [place] 1.031 (1.000-1.030) H 05/26/19 21:45 Urine Protein Negative (Negative) 05/26/19 21:45 Urine Glucose (UA) Negative (Negative) 05/26/19 21:45 Urine Ketones Trace (Negative) H 05/26/19 21:45 Urine Blood Negative (Negative) 05/26/19 21:45 Urine Nitrite Negative (Negative) 05/26/19 21:45 Urine Bilirubin Negative (Negative) 05/26/19 21:45 Urine Urobilinogen Negative (Negative) 05/26/19 21:45 Ur Leukocyte Esterase Negative (Negative) 05/26/19 21:[address] head initial read: Facial/scalp soft tissue air. Old right cerebellar infarct. Chest x-ray as interpretation atelectasis, tracheostomy tube, pneumomediastinum EKG as per my interpretation : Rate 80, NSR, LAD, LAFB, T wave flattening inferior leads
[2019-05-27] MEDS ORDERED: TRAMADOL HCL 50 MG TABLET PO PRN (02:06)
[2019-05-27] MEDS ORDERED: KETOROLAC TROMETHAMINE 15 MG/ML VIAL IV PRN (02:06)
[2019-05-27] MEDS ORDERED: ACETAMINOPHEN 325 MG TAB PO PRN (02:06)
[2019-05-27] MEDS ORDERED: NITROGLYCERIN SL 0.4 MG/TAB TAB SL PRN (02:06)
[2019-05-27] MEDS ORDERED: BENZONATATE 100 MG CAPSULE PO PRN (02:06)
[2019-05-27] MEDS ORDERED: LORazepam 0.5 MG TAB PO PRN (02:06)
[2019-05-27] MEDS ORDERED: GUAIFENESIN/CODEINE 100MG/10MG 5ML UDC PO PRN (02:06)
[2019-05-27] MEDS ORDERED: XOPENEX/ATROVENT 1.25mg/0.5MG NEB COMBO NEB PRN (02:06)
[2019-05-27] MEDS ORDERED: PROMETHAZINE HCL 12.5 MG in SODIUM CHLORIDE 0.9% 50 ML IV PRN (02:06)
[2019-05-27] MEDS ORDERED: NSS + 20MEQ KCL 20 MEQ/1,000 ML BAG IV ONE (02:30)
[2019-05-27] MEDS: IPRATROPIUM BROMIDE NEB SOLN 0.02% 2.5 ML VIAL INH PRN ×2 (02:35→07:21)
[2019-05-27] MEDS: LEVALBUTEROL 1.25MG/0.5ML NEB INH PRN ×2 (02:35→07:21)
--- NOTE | 2019-05-27 03:04 | Emergency Department Note ---
Entered by Sandra Sams acting as a scribe for History of Present Illness General Chief complaint: Syncope Stated complaint: NEEDS TRACH LOOKED AT, UNRESPONSIVE TWICE TODAY Source: patient and family History of Present Illness Provider complaint: two episodes of syncope Onset (ago): hour(s) (12) Pain Consistency: + other (episode) Maximum Pain Intensity: 0 Quality: + other (syncope) Exacerbated By: + other (coughing) Associated symptoms: + denies other symptoms (heart racing, tongue biting, incontinence), + cough and + other (stiff arms and legs, eyes rolled back into head); no chest pain and no shortness of breath The patient is a 54 year old male with PMHx of laryngeal cancer who presents to the ED with complaints of two episodes of syncope that occurred in the past 12 hours. Per , the patient had a trach and a peg tube placed 8 days ago in [place]. The states that last week, providers at [place] accidentally collapsed the patients lung when they did a lung biopsy and then collapsed the other lung when they put the trach in. Per , they put in the wrong trach, and they had to put another one in. Per , she took the patient back to [place] today, and they put another trach in. The states that today, when the 3rd trach was put in, he went unresponsive. Per , [place] sent the patient home anyway. The states that the patient had another episode of syncope later today when he was sitting on a chair. Per , the patient was unconscious for about 15 seconds, his arms and legs got stiff and his eyes rolled back into his head. The patient states that coughing is usually what prompts these episodes. While he was admitted at [facility] on Tuesday he had a syncopal episode while laying in bed. He stated the only symptom he ever has before passing out is coughing. He never gets any other symptoms such as tested for comfort, shortness of breath or palpitations. The patients states that they called [facility] and they advised her to take him to the ED because these episodes could be cardiac related. The patient denies chest pain, shortness of breath, heart racing, tongue biting and incontinence. Home Medications Home Medications Medication Instructions Recorded Confirmed Type aspirin 81 mg PO QAM 04/19/19 05/26/19 History atorvastatin 80 mg PO 04/19/19 05/26/19 History clopidogrel 75 mg PO QAM 04/19/19 05/26/19 History dronabinol 5 mg PO BIDM 04/19/19 05/26/19 History erenumab-aooe 140 mg SUBCUT MONTHLY 04/19/19 05/26/19 History lisinopril 10 mg PO QAM 04/19/19 05/26/19 History lorazepam 0.5 mg PO TID PRN 04/19/19 05/26/19 History omega 3-ogj-ror-fish oil [Fish Oil] 1 cap PO BID 04/19/19 05/26/19 History pantoprazole 20 mg PO DAILYBB 04/19/19 05/26/19 History promethazine 25 mg PO Q4H PRN 04/19/19 05/26/19 History ranitidine HCl 150 mg PO QAM 04/19/19 05/26/19 History tizanidine 4 - 8 mg PO HS 04/19/19 05/26/19 History venlafaxine 75 mg PO HS 04/19/19 05/26/19 History Complete Prostate Health 1 tab PO DAILY 05/26/19 05/26/19 History codeine-guaifenesin 5 ml PO Q6H PRN 05/26/19 05/26/19 History ondansetron HCl [Zofran] 8 mg PO Q8 PRN 05/26/19 05/26/19 History Allergies Allergy/AdvReac Type Severity Reaction Status Date / Time No Known Allergies Allergy Verified 05/26/19 21:53 Past Med/Surg History Medical History CVA (cerebral vascular accident) 07/2013--vision deficits, balance deficits, headaches--follows with Dr. Shepard, on plavix Hypertension (Acute) High cholesterol (Acute) Anxiety Difficult airway for intubation per [facility] after throat biopsy GERD (gastroesophageal reflux disease) Hearing deficit On anticoagulant therapy plavix daily Sleep apnea cpap Syncopal episodes had one last night 05/08/19 "turned blue and passed out" pt refused to go to ER Throat cancer 03/2019--just diagnosed, to start radiation 05/15/19 Surgical History History of biopsy throat to diagnose cancer--lung was punctured during procedure and had to have a chest tube. Pt was also informed that he "had a difficulty airway". History of cardiac cath 2012--no stents History of chest tube placement 04/19/2019 History of colonoscopy History of tonsillectomy History of tooth extraction History of wisdom tooth extraction Status post myringotomy with tube placement of both ears Family History Father Family history of diabetes mellitus Family hx of colon cancer Other No family history of adverse response to anesthesia Social History Preferred Language: [place]i Communication Ability: Effective Communication Ability Comment: Not using speaking voice due to new trach Structural Design Engineer Required: No Beliefs That Will Affect Care: None Current Living Situation: Spouse Feels Safe at Home: Yes Safety Concerns: Feels Safe At This Time Smoking Status: Former smoker Tobacco Type: cigarettes ; Second Hand Exposure: No ; Hx Alcohol Use: Yes Alcohol type: beer and hard liquor Hx Substance Use: No Review of Systems See HPI for pertinent positives & negatives. and A total of 10 systems reviewed and were otherwise negative Physical Exam Vital Signs Vital Signs - 24 hr 05/26/19 20:51 05/27/19 00:05 05/27/19 00:06 Temperature 36.9 C Temperature Source Oral Sepsis Recent Fever Within 48 Hours No Sepsis New/Unexplained Change in Mental Status Yes Sepsis Action Taken by Nursing No Action Required Pulse Rate 80 Pulse Rate [Apical] 84 Pulse Rate [Right] 76 Pulse Rhythm [Right] Regular Pulse Strength [Right] Normal Respiratory Rate 20 22 22 Respiratory Effort / Characteristics Non-Labored Spontaneous Non-Labored Spontaneous Respiratory Depth Normal Blood Pressure 122/81 Blood Pressure [Right Arm] 120/83 Blood Pressure Mean 94 Blood Pressure Mean [Right Arm] 95 Blood Pressure Position [Right Arm] Sitting Pulse Oximetry 98 98 94 Oxygen Delivery Method Room Air Room Air Room Air Constitutional: Vital signs reviewed. Eyes: Pupils are equal round reactive to light. Conjunctiva are noninjected. ENT: Trach in place, no bleeding, no drainage, balloon is not inflated. Pharynx is clear without erythema or exudate. Mucous membranes are moist. Neck supple without meningeal signs. Respiratory: Scattered rhonchi bilaterally. Breath sounds are equal bilaterally. Cardiovascular: Regular rate and rhythm. No rubs or gallops. GI: G-tube upper abdomen, no bleeding, erythema or discharge from stoma. Soft, nondistended and nontender. Bowel sounds are present. Musculoskeletal: No peripheral edema. No lower extremity tenderness. Integumentary: No cyanosis. Neurological: The patient is awake and alert. Cranial nerves II-XII are intact. Motor is 5 out of 5 all extremities. Sensation is intact to light touch all extremities. Normal speech. No pronator drift. Psychiatric: Normal affect. Course 2117: Past medical records reviewed. The patient was evaluated in room C10. A complete history and physical exam was performed. 0027: I discussed the patient's case with Dr. Pleitez [facility] Hospitalist. He will evaluate the patient for further management. Consultations Consultation #1: I discussed the patient's case with Dr. Pleitez [facility] Hospitalist. He will evaluate the patient for further management. Time: 00:27 Administered Medications Ipratropium Viola (Atrovent 0.02% 0.5mg/2.5ml) 0.5 mg INH Q4H PRN PRN Reason: sob Stop: 06/26/19 02:05 Last Admin: 05/27/19 02:35 Dose: 0.5 mg Documented by: [id number] Levalbuterol HCl (Xopenex 1.25mg/0.5ml Neb) 1.25 mg INH Q4H PRN PRN Reason: sob Stop: 06/26/19 02:05 Last Admin: 05/27/19 02:35 Dose: 1.25 mg Documented by: [id number] Discontinued Medications Albuterol (Duoneb) Confirm Administered Dose 3 ml .ROUTE .STK-MED ONE Stop: 05/26/19 23:14 Last Admin: 05/26/19 23:35 Dose: 3 ml Documented by: [id number] Albuterol (Duoneb) 3 ml NEB NOW STA Stop: 05/27/19 01:22 Last Admin: 05/27/19 02:34 Dose: Not Given Documented by: [id number] Piperacillin Sod/Tazobactam Sod (Zosyn) 4.5 gm in 120 mls @ 240 mls/hr IV NOW ONE Stop: 05/27/19 00:57 Last Infusion: 05/27/19 01:24 Dose: 0 mls/hr Documented by: [id number] Admin: 05/27/19 00:45 Dose: 240 mls/hr Documented by: [id number] Methylprednisolone (Solumedrol) 20 mg IV NOW STA Stop: 05/27/19 01:21 Last Admin: 05/27/19 01:45 Dose: 20 mg Documented by: [id number] Medical Decision Making Differential Diagnosis Differentials include syncope, vasovagal syncope, dysrhythmia, anemia, pneumonia, pneumothorax. Medical Records Attestation: I reviewed the patient's medical records. Seen by radiooncology May 01 for laryngeal cancer. Home Medications Current Medication List: was personally reviewed by me Laboratory Data Attestation: I reviewed the patient's lab results. Result diagrams: 05/26/19 21:50 05/26/19 21:50 Lab Results 05/26/19 05/26/19 05/26/19 Range/Units 21:45 21:50 21:50 WBC 9.56 (4.8-10.8) K/uL RBC 4.85 (4.7-6.1) M/uL Hgb 15.1 (14.0-18.0) g/dL Hct 44.0 (42-52) % MCV 90.7 (80-100) fL MCH 31.1 (25-34) pg MCHC 34.3 (32-36) g/dL RDW Std Deviation 42.6 (36.4-46.3) fL RDW Coeff of [place] 13.0 (11.5-14.5) % Plt Count 339 (130-400) K/uL MPV 11.5 H (7.4-10.4) fL Immature Gran % (Auto) 0.2 % Neut % (Auto) 69.5 % Lymph % (Auto) 16.8 % Stone % (Auto) 11.7 % Eos % (Auto) 1.5 % Baso % (Auto) 0.3 % Immature Gran # (Auto) 0.02 (0.00-0.02) K/uL Neut # (Auto) 6.64 H (1.4-6.5) K/uL Lymph # (Auto) 1.61 (1.2-3.4) K/uL Stone # (Auto) 1.12 H (0.11-0.59) K/uL Eos # (Auto) 0.14 (0-0.5) K/uL Baso # (Auto) 0.03 (0-0.2) K/uL PT (9.0-12.0) Seconds INR (0.9-1.1) APTT (21.0-31.0) Seconds PTT Ratio Sodium 138 (136-145) mmol/L Potassium 3.6 (3.5-5.1) mmol/L Chloride 102 (98-107) mmol/L Carbon Dioxide 28 (21-32) mmol/L Anion Gap 8.0 (3-11) BUN 17 (7-18) mg/dl Creatinine 0.95 (0.6-1.4) mg/dl Est Cr Clr Drug Dosing 112.1 ml/min Est GFR ( Amer) 104.0 Est GFR (Non-Af Amer) 89.8 BUN/Creatinine Ratio 18.0 (10-20) Glucose 114 H (70-99) mg/dl Calcium 8.8 (8.5-10.1) mg/dl Magnesium 2.4 (1.8-2.4) mg/dl Total Bilirubin 0.6 (0.2-1) mg/dl AST 19 (15-37) U/L ALT 34 (12-78) U/L Alkaline Phosphatase 99 (45-117) U/L Troponin I < 0.015 (0-0.045) ng/ml Total Protein 6.8 (6.4-8.2) gm/dl Albumin 3.3 L (3.4-5.0) gm/dl Globulin 3.5 (2.5-4.0) gm/dl Albumin/Globulin Ratio 0.9 (0.9-2) TSH 3.860 (0.300-4.500) uIu/ml Urine Color Dark Yellow Urine Appearance Clear (Clear) Urine pH 5.5 (4.5-7.5) Ur Specific [place] 1.031 H (1.000-1.030) Urine Protein Negative (Negative) Urine Glucose (UA) Negative (Negative) Urine Ketones Trace H (Negative) Urine Blood Negative (Negative) Urine Nitrite Negative (Negative) Urine Bilirubin Negative (Negative) Urine Urobilinogen Negative (Negative) Ur Leukocyte Esterase Negative (Negative) 05/26/19 Range/Units 21:50 WBC (4.8-10.8) K/uL RBC (4.7-6.1) M/uL Hgb (14.0-18.0) g/dL Hct (42-52) % MCV (80-100) fL MCH (25-34) pg MCHC (32-36) g/dL RDW Std Deviation (36.4-46.3) fL RDW Coeff of [place] (11.5-14.5) % Plt Count (130-400) K/uL MPV (7.4-10.4) fL Immature Gran % (Auto) % Neut % (Auto) % Lymph % (Auto) % Stone % (Auto) % Eos % (Auto) % Baso % (Auto) % Immature Gran # (Auto) (0.00-0.02) K/uL Neut # (Auto) (1.4-6.5) K/uL Lymph # (Auto) (1.2-3.4) K/uL Stone # (Auto) (0.11-0.59) K/uL Eos # (Auto) (0-0.5) K/uL Baso # (Auto) (0-0.2) K/uL PT 10.9 (9.0-12.0) Seconds INR 1.1 (0.9-1.1) APTT 26.5 (21.0-31.0) Seconds PTT Ratio 1.0 Sodium (136-145) mmol/L Potassium (3.5-5.1) mmol/L Chloride (98-107) mmol/L Carbon Dioxide (21-32) mmol/L Anion Gap (3-11) BUN (7-18) mg/dl Creatinine (0.6-1.4) mg/dl Est Cr Clr Drug Dosing ml/min Est GFR ( Amer) Est GFR (Non-Af Amer) BUN/Creatinine Ratio (10-20) Glucose (70-99) mg/dl Calcium (8.5-10.1) mg/dl Magnesium (1.8-2.4) mg/dl Total Bilirubin (0.2-1) mg/dl AST (15-37) U/L ALT (12-78) U/L Alkaline Phosphatase (45-117) U/L Troponin I (0-0.045) ng/ml Total Protein (6.4-8.2) gm/dl Albumin (3.4-5.0) gm/dl Globulin (2.5-4.0) gm/dl Albumin/Globulin Ratio (0.9-2) TSH (0.300-4.500) uIu/ml Urine Color Urine Appearance (Clear) Urine pH (4.5-7.5) Ur Specific [place] (1.000-1.030) Urine Protein (Negative) Urine Glucose (UA) (Negative) Urine Ketones (Negative) Urine Blood (Negative) Urine Nitrite (Negative) Urine Bilirubin (Negative) Urine Urobilinogen (Negative) Ur Leukocyte Esterase (Negative) Imaging Data Attestation: I personally reviewed and interpreted this imaging study as follows: My Impression: CHEST X-RAY: Left lower lobe infiltrate, no pneumothorax Radiologist's Impression: Radiology results as stated below per my review and the radiologist's interpretation: CT HEAD: Compared to 08/18/2013. No intracranial hemorrhage or skull fracture. Facial/scalp soft tissue air. Old right cerebellar infarct. Mild sinus disease. Radiologist: Julia Espinoza M.D. ECG Data Attestation: I personally reviewed and interpreted this ECG as follows: Indication: other (unresponsive) Rate (beats per minute): 79 Rhythm: normal sinus Findings: no PVC and no ST elevation Blood Pressure Blood Pressure Findings: Elevated blood pressure Blood Pressure Disposition: further management by hospitalist KENNETH Benitez I did evaluate the patient as noted above. The patient is presenting with syncopal episodes. They occur after he coughs. He denies any other presyncopal symptoms. He has had about 4 episodes in the past week. He has also had his trach replaced several times over the past week for laryngeal cancer. We did have the respiratory therapist evaluate the patient and perform suction. He was also given a DuoNeb as the therapist reported wheezing. IV access was established. The patient was placed on a continuous valuation consultant. I did order and personally review the patient's 12-lead EKG as described above. Twelve-lead EKG does not show any acute ischemic changes or heart block or dysrhythmia. I did order and personally reviewed the images of the patient's chest x-ray as described above. He does appear to have a left lower lobe infiltrate. I did order blood cultures. I did treat him with Zosyn IV. I did order and review the patient's blood work as noted in the electronic medical record. His white count is not elevated. He is not any. Electrolytes are unremarkable. I did order a CT of the head. I did review the images myself as well as the radiology report as described above. There is no evidence of acute intracranial abnormality. I did discuss the test results with the patient. He does appear to have cough syncope but given the multiple episodes he has had I did recommend hospitalization for further work-up and evaluation. I did discuss the case with the briefcase sewer and hospitalist. Impression & Plan Syncopal episodes, Left lower lobe pneumonia, Squamous cell carcinoma of larynx, Tracheostomy in place Discharge Plan Visit Data *Final* Discharge Date/Time: 05/27/19 01:55 Chief Complaint: Syncope Stated Complaint: NEEDS TRACH LOOKED AT, UNRESPONSIVE TWICE TODAY ED Provider: Choco Kumar Discharge Problem: Syncopal episodes, Left lower lobe pneumonia, Squamous cell carcinoma of larynx, Tracheostomy in place Patient Disposition: Admitted As Inpatient Discharge Instructions Interventions: ED Discharge Assessment Last Done: 05/27/19 01:55 The rayibe's documentation has been prepared under my direction and personally reviewed by me in its entirety. I confirm that the note above accurately reflects all work, treatment, procedures, and medical decision making performed by me.
[2019-05-27 06:18] LABS: Basophils # (auto) 0.02 K/uL (0-0.2); Basophils % (auto) 0.2 %; Eosinophils # (auto) 0.03 K/uL (0-0.5); Eosinophils % (auto) 0.3 %; Hematocrit (blood only) 41.4 % (42-52); Hemoglobin 14.2 g/dL (14.0-18.0); Immature Granulocytes # (auto) 0.02 K/uL (0.00-0.02); Immature Granulocytes % (auto) 0.2 %; Lymphocytes % (auto) 10.9 %; Mean Corpuscular Hgb Conc 34.3 g/dL (32-36); Mean Corpuscular Volume 90.8 fL (80-100); Mean Platelet Volume 11.2 fL (7.4-10.4); Monocytes # (auto) 0.48 K/uL (0.11-0.59); Monocytes % (auto) 5.2 %; Neutrophils # (auto) 7.66 K/uL (1.4-6.5); Neutrophils % (auto) 83.2 %; Platelet Count 326 K/uL (130-400); RDW Coefficient of Variation 12.9 % (11.5-14.5); RDW Standard Deviation 42.5 fL (36.4-46.3); Red Blood Count 4.56 M/uL (4.7-6.1); White Blood Count 9.21 K/uL (4.8-10.8)
[2019-05-27] MEDS ORDERED: PANTOprazole 40 MG TAB PO SCH (06:30)
--- NOTE | 2019-05-27 06:44 | XRay Report ---
XR chest 2V routine HISTORY: 54 years-old Male cough eval for pna acute cough with esophageal cancer COMPARISON: Chest radiographs 04/30/2019 TECHNIQUE: PA and lateral views of the chest FINDINGS: Esophageal stent is noted, distal tip extending to the level of the inferior clavicular heads. Probab le pneumomediastinum. Deep tissue air about the neck base and supraclavicular distributions. Cardiome diastinal and hilar silhouettes are within normal limits. There is no pneumothorax, pleural effusion or overt pulmonary edema. Subsegmental lingular opacities are noted. Degenerative changes of the shou lders and spine. Tortuosity of the descending thoracic aorta. IMPRESSION: 1. Subsegmental inferior segment lingular opacities suggest atelectasis or pneumonitis. 2. Esophageal stent is noted with a moderate amount of deep tissue air about the neck base and suprac lavicular distributions with probable pneumomediastinum, likely on a postsurgical basis. Correlate cl inically. The above report was generated using voice recognition software. It may contain grammatical, syntax o r spelling errors. Electronically signed by: Duarte Parisi M.D. 05/27/2019 6:43 AM
--- NOTE | 2019-05-27 07:10 | CT Scan Report ---
CT head/brain wo con CLINICAL HISTORY: 54 years-old Male with syncope. Acute syncope with history of esophageal cancer an d recent esophageal stent placement TECHNIQUE: Multiple axial CT images of the head were obtained without contrast. A dose lowering tech nique was utilized adhering to the principles of ALARA. CT DOSE: 614.27 mGy.cm COMPARISON: Chest radiograph of same day, head CT 08/18/2013. FINDINGS: No acute intracranial hemorrhage, midline shift, intracranial mass, hydrocephalus, territorial ischem ia or abnormal extra-axial collection. Encephalomalacia about the inferior right cerebellar hemispher e from remote infarct, progressed from comparison. The calvarium is intact. The paranasal sinuses, mastoid air cells, and middle ear cavities are clear . Deep tissue air from the neck tracks along the deep tissues of the right face and neck tracking michaela ng the automotive finance manager space into the right infratemporal fossa and right scalp. IMPRESSION: 1. No acute intracranial abnormality identified. 2. Remote right cerebellar hemispheric infarct. 3. Deep tissue air of the neck tracks along the right face and right scalp, likely on a postsurgical basis. Correlate clinically. The above report was generated using voice recognition software. It may contain grammatical, syntax o r spelling errors. Electronically signed by: Duarte Parisi M.D. 05/27/2019 7:09 AM
[2019-05-27] MEDS ORDERED: DRONABINOL 2.5 MG CAP PO SCH (08:00)
[2019-05-27] MEDS ORDERED: AMOXICILLIN/CLAVULANATE 875 MG TAB PO SCH (08:00)
[2019-05-27] MEDS ORDERED: CLOPIDOGREL BISULFATE 75 MG TAB PO SCH (09:00)
[2019-05-27] MEDS ORDERED: LISINOPRIL 10 MG TAB PO SCH (09:00)
[2019-05-27] MEDS ORDERED: ENOXAPARIN INJ 40 MG/0.4 ML SYR SQ SCH (09:00)
[2019-05-27] MEDS ORDERED: VENLAFAXINE HCL XR 75 MG CAPXR PO SCH ×2 (09:00→21:00)
[2019-05-27] MEDS ORDERED: ASPIRIN 81 MG ECTAB PO SCH (09:00)
[2019-05-27 11:19] VITALS: TEMP 98.1; O2SAT 92
--- NOTE | 2019-05-27 13:59 | Communication Note ---
Date of Service: May 27, 2019 Pt was seen and examined Sitting in bed with no distress Pt said that he feels fine He said that he has not had any episode of syncope since his cough improves He said that he only has syncope with excessive cough He said that he mostly coughs in the morning since he has post nasal drainage He said that he just met with speech therapy and they taught him some stuff to help during coughing spells He would like to go home today Denies any chest pain, palpitation, dizziness and SOB Exam General- No acute distress Head- atraumatic Eyes- PERRL, EOMI, ENT- Tracheostomy tube in place Neck- supple, no JVD Lungs- clear to auscultation Heart- regular rhythm; no murmur Abdomen- normal bowel sounds, soft, nontender, +peg tube Extremities- no calf tenderness Neuro- alert, oriented x 3; PERRL, EOMI; no facial palsy; no dysarthria Skin- warm & dry A/P Recurrent syncopal episodes Symptoms only occurs with coughing spells Secondary to laryngeal irritation/cough symptoms CT head showed no acute intracranial abnormality ECHO done showed no wall motion abnormality No arrhythmia on tele monitor Continue cough suppressant med that help with cough Advised pt whenever that he starts to cough, he needs to try to sit down to avoid any injury while standing Fall precaution Laryngeal carcinoma S/P recent tracheostomy Ongoing chemoradiation Follow up appointment with Zina for trach management on Follow up with dr. Rabago oncologist on Tuesday Possible aspiration pneumonitis CXR showed subsegmental inferior segment lingular opacities suggest atelectasis or pneumonitis. Afebrile, No leukocytosis Received Zosyn in the ER Admiting team starting on Augmentin Will complete 5 days course of abx Cough Due to post nasal drip ( Only occurs in the morning) Continue Guaifenesin syrup Will add loratadine HTN BP stable Continue Lisinopril Hx CVA Continue Statin and aspirin Stable DVT px on Lovenox CODE STATUS FULL CODE Disposition Discharge home today Follow up with your primary care provider
[2019-05-27 14:30] VITALS: BP 120/83; PULSE 80
--- NOTE | 2019-05-27 18:08 | Discharge Summary ---
Date of Service May 27, 2019 Admission HPI Per Admitting Provider History obtained from patient, family, and records. Limited history from patient secondary to tracheostomy. Medical history significant for laryngeal cancer undergoing chemoradiation, history pneumothorax, CVA, hypertension, hyperlipidemia, PVD, LORRIE as per records, chronic migraine, mood disorder, prediabetes as per records, past tobacco abuse. Patient found to have laryngeal cancer last March 2019. Currently receiving chemoradiation. Patient admitted at [facility] from May 17-2018 for elective tracheostomy/PEG tube placement in anticipation of airway, swallowing problems following radiotherapy. Stay complicated by inadvertent tracheostomy tube false tracking and left pneumothorax/pneumoperitoneum status post chest tube placement. Syncopal event noted during tracheostomy tube change at bedside as per during confinement. Patient still allowed regular diet on discharge, PEG tube feedings on patient discretion. Yesterday morning at home patient junky cough symptoms which caused patient to pass out. No witnessed seizures, tongue biting, urinary incontinence. Near syncopal event every time he would cough as per patient. No chest pain, no S OB, no fever, no chills. Usual migraine headaches. Absent airflow from tracheostomy. Tracheostomy tube noted to be dislodged at [facility] ER. Adjustable tracheostomy tube placed by ENT team. Transient syncopal episode during tracheostomy tube placement. Patient discharged on cough suppressants from the emergency room. At home, patient had another syncopal event after coughing. At the ER, patient received IV Zosyn for possible pneumonia. Medical History as above Surgical History : Laryngoscopy, tonsillectomy, vascular procedure, ASD/PFO closure, tracheostomy, PEG tube placement Family History : Heart disease, colon cancer, diabetes Personal/Social history : Past tobacco abuse, occasional EtOH intake, disabled Admission Exam Per Admitting Provider GENERAL: Comfortable, slightly anxious, obese, no respiratory distress, episodic coughing SKIN: Normal color, warm HEENT: Alopecia, pink palpebral conjunctivae, no ptosis, dry buccal mucosa NECK : Supple, short neck, tracheostomy tube in place, no tenderness CHEST : Expiratory wheezes , no tenderness HEART : RRR, no obvious murmurs ABDOMEN: Some distention, PEG tube in place, nontender EXTREMITIES : No LE swelling/tenderness, no other conspicuous deformities noted NEUROLOGIC : Coherent, no facial asymmetry, gait and stance not assessed Principal Diagnosis Recurrent syncopal episodes Laryngeal carcinoma Cough Possible aspiration pneumonitis Hypertension Discharge Exam General- No acute distress Head- atraumatic Eyes- PERRL, EOMI, ENT- Tracheostomy tube in place Neck- supple, no JVD Lungs- clear to auscultation Heart- regular rhythm; no murmur Abdomen- normal bowel sounds, soft, nontender, +peg tube Extremities- no calf tenderness Neuro- alert, oriented x 3; PERRL, EOMI; no facial palsy; no dysarthria Skin- warm & dry Discharge Data Allergies Allergy/AdvReac Type Severity Reaction Status Date / Time No Known Allergies Allergy Verified 05/26/19 21:53 Consultations 05/27/19 00:28 ED Decision to Admit Stat Ordered Studies 05/26/19 21:28 CT head/brain wo con Urgent CT head/brain wo con CLINICAL HISTORY: 54 years-old Male with syncope. Acute syncope with history of esophageal cancer and recent esophageal stent placement TECHNIQUE: Multiple axial CT images of the head were obtained without contrast. A dose lowering technique was utilized adhering to the principles of ALARA. CT DOSE: 614.27 mGy.cm COMPARISON: Chest radiograph of same day, head CT 08/18/2013. FINDINGS: No acute intracranial hemorrhage, midline shift, intracranial mass, hydrocephalus, territorial ischemia or abnormal extra-axial collection. Encephalomalacia about the inferior right cerebellar hemisphere from remote infarct, progressed from comparison. The calvarium is intact. The paranasal sinuses, mastoid air cells, and middle ear cavities are clear. Deep tissue air from the neck tracks along the deep tissues of the right face and neck tracking along the vp space into the right infratemporal fossa and right scalp. IMPRESSION: 1. No acute intracranial abnormality identified. 2. Remote right cerebellar hemispheric infarct. 3. Deep tissue air of the neck tracks along the right face and right scalp, likely on a postsurgical basis. Correlate clinically. The above report was generated using voice recognition software. It may contain grammatical, syntax or spelling errors. Electronically signed by: Duarte Parisi M.D. 05/27/2019 7:09 AM Dictated: 05/27/19705 Transcribed: 05/27/19705 XR chest 2V routine HISTORY: 54 years-old Male cough eval for pna acute cough with esophageal cancer COMPARISON: Chest radiographs 04/30/2019 TECHNIQUE: PA and lateral views of the chest FINDINGS: Esophageal stent is noted, distal tip extending to the level of the inferior clavicular heads. Probable pneumomediastinum. Deep tissue air about the neck base and supraclavicular distributions. Cardiomediastinal and hilar silhouettes are within normal limits. There is no pneumothorax, pleural effusion or overt pulmonary edema. Subsegmental lingular opacities are noted. Degenerative changes of the shoulders and spine. Tortuosity of the descending thoracic aorta. IMPRESSION: 1. Subsegmental inferior segment lingular opacities suggest atelectasis or pneumonitis. 2. Esophageal stent is noted with a moderate amount of deep tissue air about the neck base and supraclavicular distributions with probable pneumomediastinum, likely on a postsurgical basis. Correlate clinically. The above report was generated using voice recognition software. It may contain grammatical, syntax or spelling errors. Electronically signed by: Duarte Parisi M.D. 05/27/2019 6:43 AM Dictated: 05/27/19639 Transcribed: 05/27/19639 Hospital Course (1) Recurrent syncope: Recurrent syncopal episodes Symptoms only occurs with coughing spells Secondary to laryngeal irritation/cough symptoms CT head showed no acute intracranial abnormality ECHO done showed no wall motion abnormality No arrhythmia on tele monitor Continue cough suppressant med that help with cough Advised pt whenever that he starts to cough, he needs to try to sit down to avoid any injury while standing Fall precaution Laryngeal carcinoma S/P recent tracheostomy Ongoing chemoradiation Follow up appointment with Zina for trach management on Follow up with dr. Rabago oncologist on Tuesday Possible aspiration pneumonitis CXR showed subsegmental inferior segment lingular opacities suggest atelectasis or pneumonitis. Afebrile, No leukocytosis Received Zosyn in the ER Admiting team starting on Augmentin Will complete 5 days course of abx Cough Due to post nasal drip ( Only occurs in the morning) Continue Guaifenesin syrup Will add loratadine HTN BP stable Continue Lisinopril Hx CVA Continue Statin and aspirin Stable DVT px on Lovenox CODE STATUS FULL CODE Disposition Discharge home today Follow up with your primary care provider Total Time Total Time Spent Total Time Spent (In Minutes): 35 minutes Total Time Includes: Examination of the Patient, Discharge Planning, Medication Reconciliation, Communication With Other Providers and Other Discharge Plan Discharge Items Patient Disposition: Home - Self-Care Reason For Visit: RECURRENT SYNCOPE Discharge Diagnosis: Recurrent syncopal episodes Laryngeal carcinoma Cough Possible aspiration pneumonitis Hypertension Discharge Goals: Decrease discomfort, Improve disease control, Improve function and Increase independence Activity: Resume your previous activity Activity Comment: As tolerated Non-emergency contact: Primary Care Provider and Oncologist Call non-emergency contact if: you have any medication questions Follow-up/Referrals: Karley Morris DO [Primary Care Provider] - Diet: Heart Healthy Addtl Provider Instructions: Follow up with your primary care provider within 1 week Follow up with your oncology Dr. Rabago Follow up with Zina on for the tracheotomy management Fall precaution Aspiration precaution Prescriptions: New amoxicillin-pot clavulanate 875-125 mg Tablet 1 tab PO BIDM 5 Days Qty: 10 RF: 0 loratadine 10 mg tablet 10 mg PO DAILY Qty: 30 RF: 0 Continued ondansetron HCl [Zofran] 8 mg Tablet 8 mg PO Q8 PRN (Reason: Nausea And Vomiting) RF: 0 Complete Prostate Health 1 tab PO DAILY RF: 0 codeine-guaifenesin 10-100 mg/5 mL liquid 5 ml PO Q6H PRN (Reason: COUGH/PAIN) RF: 0 atorvastatin 80 mg Tablet 80 mg PO HS RF: 0 venlafaxine 75 mg Capsule,Extended Release 24hr 75 mg PO HS RF: 0 dronabinol 5 mg Capsule 5 mg PO BIDM RF: 0 clopidogrel 75 mg Tablet 75 mg PO QAM RF: 0 pantoprazole 20 mg Tablet,Delayed Release (Dr/Ec) 20 mg PO DAILYBB RF: 0 lorazepam 0.5 mg Tablet 0.5 mg PO TID PRN (Reason: ANXIETY) RF: 0 ranitidine HCl 150 mg Tablet 150 mg PO QAM RF: 0 lisinopril 10 mg Tablet 10 mg PO QAM RF: 0 promethazine 25 mg Tablet 25 mg PO Q4H PRN (Reason: HEAD AND NECK PAIN) RF: 0 aspirin 81 mg Tablet,Chewable 81 mg PO QAM RF: 0 tizanidine 4 mg Capsule 4 - 8 mg PO HS RF: 0 omega 2-uqz-zzf-fish oil [Fish Oil] 1,000 mg (120 mg-180 mg) Capsule 1 cap PO BID RF: 0 erenumab-aooe 140 mg/mL Auto-Injector 140 mg SUBCUT MONTHLY RF: 0 Stand-Alone Forms: [facility] Discharge Orders: Discharge Order (Routine); Ordered 05/27/19 Ordered By: Vivian Baird Admission Data Admit Date/Time: 05/27/19 01:24 Attending Provider: Vivian Baird Admit Provider: John Lockett Primary Care Provider: Karley Morris Other Providers: John Lockett Service: Telemetry Medical Other Interventions: Discharge Summary Assessment (RN) Last Done: 05/27/19 14:28 DC Date/Time DO NOT enter until pt leaves facility: 05/27/19 15:20
[2019-05-27] MEDS ORDERED: ATORVASTATIN 40 MG TAB PO SCH (21:00)
[2019-05-27] MEDS ORDERED: TIZANIDINE HCL 4 MG TABLET PO SCH (21:00)
== END 2019-05-27 15:20 | disposition home or self-care (01) ==
LOC: 2N 20:49 → ED 20:49 → 2N 05-27 01:55

== ENCOUNTER 2019-08-02 20:50 | Inpatient (IN) ==
[2019-08-02] MEDS ORDERED: ALBUT/IPRATROP 3MG/0.5MG NEB 3 ML VIAL NEB STA (22:42)
[2019-08-02] MEDS ORDERED: ONDANSETRON INJ 2 MG/ML 2 ML VIAL IV STA (22:42)
[2019-08-02] MEDS ORDERED: SODIUM CHLORIDE 0.9% 1000ML 1,000 ML IV SCH (22:45)
[2019-08-02 23:11] LABS: Basophils # (auto) 0.06 K/uL (0-0.2); Basophils % (auto) 0.5 %; Eosinophils # (auto) 0.28 K/uL (0-0.5); Eosinophils % (auto) 2.3 %; Immature Granulocytes # (auto) 0.04 K/uL (0.00-0.02); Immature Granulocytes % (auto) 0.3 %; Lymphocytes # (auto) 0.64 K/uL (1.2-3.4); Lymphocytes % (auto) 5.3 %; Mean Corpuscular Hemoglobin 31.6 pg (25-34); Mean Corpuscular Hgb Conc 34.8 g/dL (32-36); Mean Corpuscular Volume 90.7 fL (80-100); Mean Platelet Volume 12.3 fL (7.4-10.4); Monocytes # (auto) 1.32 K/uL (0.11-0.59); Monocytes % (auto) 10.9 %; Neutrophils # (auto) 9.76 K/uL (1.4-6.5); Neutrophils % (auto) 80.7 %; Platelet Count 292 K/uL (130-400); RDW Standard Deviation 43.2 fL (36.4-46.3); Red Blood Count 5.07 M/uL (4.7-6.1)
[2019-08-02 23:50] LABS: Alanine Aminotransferase 70 U/L (12-78); Albumin Globulin Ratio 0.8 (0.9-2); Albumin Level 3.3 gm/dl (3.4-5.0); Alkaline Phosphatase 144 U/L (45-117); BUN Creatinine Ratio 26.1 (10-20); Bilirubin,Total 0.9 mg/dl (0.2-1); Blood Urea Nitrogen 29 mg/dl (7-18); Calcium 9.7 mg/dl (8.5-10.1); Carbon Dioxide 24 mmol/L (21-32); Chloride 104 mmol/L (98-107); Est GFR (African American) 88.1; Glucose 131 mg/dl (70-99); Sodium 138 mmol/L (136-145); Thyroid Stimulating Hormone 0.924 uIu/ml (0.300-4.500); Total Protein 7.3 gm/dl (6.4-8.2); Troponin I < 0.015 ng/ml (0-0.045)
[2019-08-03 00:35] LABS: Potassium 3.6 mmol/L (3.5-5.1)
[2019-08-03 00:41] LABS: Magnesium 1.7 mg/dl (1.8-2.4)
--- NOTE | 2019-08-03 01:59 | History & Physical Report ---
Date of Service August 03, 2019 Assessment & Plan (1) SOB (shortness of breath): Multifactorial: Recurrent pneumothorax (3rd episode, past history chest tube placement) hx laryngeal cancer sp chemoradiation sp tracheostomy tube Aspiration pneumonitis, possible sepsis Poor appetite, nausea, emesis Possible side effect from recent Fentanyl patch Rx hypertension, stable hyperlipidemia on statin Rx PVD as per records hx prediabetes, hemoglobin A1c of 5.01 Mar 2019 past tobacco abuse Erbitux rash, slow improvement on ongoing Doxycycline and topical rx as per patient Medical telemetry CT surgery consult RE recurrent pneumothorax Cultures, IV Unasyn for now for possible aspiration pneumonitis Decrease Fentanyl patch dose for now Continue Doxycycline course for Erbitux rash; inquire from patient's oncologist about possible steroid course for Erbitux rash DVT prophylaxis. Lovenox subcu Full code Case discussed with Dr. Alicea (CT surgeon ammonia worker). Chest tube placement to be done in a.m. History of Present Illness Primary Care Provider: Karley Morris DO History obtained from patient, family, and records. Limited history from patient secondary to tracheostomy. Medical history significant for laryngeal cancer sp chemoradiation, history recurrent postprocedural pneumothorax status post chest tube placement (March and April 2019), CVA, hypertension, hyperlipidemia, PVD, LORRIE as per records, chronic migraine, mood disorder, prediabetes as per records, past tobacco abuse, Erbitux rash ongoing Doxycycline Rx, chronic pain on Fentanyl patch. Recent confinement May 2019 for recurrent cough syncope. Patient completed chemoradiation last month. Started on Fentanyl patch last week by oncologist for neck pain. Patient miserable since last week. Feels he is going downhill. Pruritic truncal Erbitux rash had spread to both upper extremities and back the last week as per despite ongoing doxycycline via PEG, topical Rx by oncologist. Poor appetite, sleeping a lot, balance is off as per . About 20 to 30 pound weight loss in the last 2 months as per . Minimal achy abdominal discomfort, nausea, emesis, good bowel movement. Worsening junky cough symptoms with increasing shortness of breath. No chest pain. Patient brought to the ER by . Medical History as above Surgical History : Laryngoscopy, tonsillectomy, vascular procedure, ASD/PFO closure, tracheostomy, PEG tube placement, chest tube thoracostomy Family History : Heart disease, colon cancer, diabetes Personal/Social history : Past tobacco abuse, occasional EtOH intake, disabled Allergies Allergy/AdvReac Type Severity Reaction Status Date / Time No Known Allergies Allergy Verified 08/03/19 00:46 Home Medications Home Medications Medication Instructions Recorded Confirmed Type atorvastatin 80 mg PO HS 04/19/19 08/03/19 History clopidogrel 75 mg PO QAM 04/19/19 08/03/19 History dronabinol [Marinol] 5 mg PO BIDM 04/19/19 08/03/19 History erenumab-aooe [Aimovig 140 mg SUBCUT MONTHLY 04/19/19 08/03/19 History Autoinjector] lisinopril 10 mg FEEDING TUBE QAM 04/19/19 08/03/19 History lorazepam 0.5 mg PO TID PRN 04/19/19 08/03/19 History omega 3-fyf-xiu-fish oil [Fish Oil] 1 cap PO BID 04/19/19 08/03/19 History pantoprazole 20 mg PO DAILYBB 04/19/19 08/03/19 History promethazine 25 mg PO Q4H PRN 04/19/19 08/03/19 History tizanidine [Zanaflex] 4 - 8 mg FEEDING TUBE HS 04/19/19 08/03/19 History ondansetron HCl [Zofran] 8 mg PO Q8 PRN 05/26/19 08/03/19 History aspirin 81 mg FEEDING TUBE QAM 06/06/19 08/03/19 History doxycycline hyclate 100 mg FEEDING TUBE BID 06/06/19 08/03/19 History saw-vit E-sod loe-wrl-hcmb-pyg 1 tab PO DAILY 06/06/19 08/03/19 History [Prostate Health] morphine concentrate 100 mg/5 mL 10 mg PO Q4H PRN ml 07/04/19 08/03/19 History (20 mg/mL) oral solution sertraline 20 mg/mL oral 25 mg FEEDING TUBE DAILY 07/09/19 08/03/19 History concentrate famotidine-Ca carb-mag hydrox 1 tab FEEDING TUBE DIRECTED PRN 08/03/19 08/03/19 History [Pepcid Complete] fentanyl 1 patch TRANSDERMAL Q72H 08/03/19 08/03/19 History Past Med/Surg History Medical History CVA (cerebral vascular accident) 07/2013--vision deficits, balance deficits, headaches--follows with Dr. Shepard, on plavix Hypertension (Acute) High cholesterol (Acute) Anxiety Difficult airway for intubation per [facility] [place] throat biopsy GERD (gastroesophageal reflux disease) Hearing deficit On anticoagulant therapy plavix daily Sleep apnea cpap Syncopal episodes had one last night 05/08/19 "turned blue and passed out" pt refused to go to ER Throat cancer 03/2019--just diagnosed, to start radiation 05/15/19 Surgical History History of biopsy throat to diagnose cancer--lung was punctured during procedure and had to have a chest tube. Pt was also informed that he "had a difficulty airway". History of cardiac cath 2012--no stents History of chest tube placement 04/19/2019 History of colonoscopy History of tonsillectomy History of tooth extraction History of wisdom tooth extraction Status post myringotomy with tube placement of both ears Social History Preferred Language: Micronesian Communication Ability: Impaired Communication Ability Comment: has trach, speaking difficult Training Coordinator Required: No Beliefs That Will Affect Care: None Current Living Situation: Spouse Feels Safe at Home: Yes Safety Concerns: Feels Safe At This Time Smoking Status: Former smoker Tobacco Type: cigarettes ; Do You Dip or Chew Tobacco: No ; Second Hand Exposure: No ; Hx Alcohol Use: No Hx Substance Use: No Review of Systems Review of Systems: As per HPI, all 10 systems reviewed, all other ROS negative Physical Exam Physical Exam: GENERAL: uncomfortable, no respiratory distress, occasionally coughing SKIN: Normal color, warm, crusty papular rash over patient's neck, anterior trunk, back, both upper extremities with some degree of erythema more prominent on both upper extremities HEENT: Alopecia, pink palpebral conjunctivae, no ptosis, dry buccal mucosa NECK : Supple, tracheostomy in place, minimal cervical tenderness, no crepitus CHEST : Decreased breath sounds, no wheezes, no tenderness HEART : Tachycardic , no obvious murmurs ABDOMEN: Some distention, PEG tube in place, nontender EXTREMITIES : No LE swelling/tenderness, no other conspicuous deformities noted NEUROLOGIC : Coherent, no facial asymmetry, no other gross focality Results & Data Vital Signs (Past 12 Hours) Vital Signs Temp Pulse Pulse Resp BP BP Pulse Ox 08/03/19 01:10 104 H 16 139/90 99 08/03/19 00:16 113 H 16 129/85 97 08/02/19 22:57 120 H 20 95 08/02/19 22:53 118 H 19 131/83 96 08/02/19 22:49 114 H 22 96 08/02/19 22:31 96 08/02/19 22:30 90 17 131/83 96 08/02/19 22:15 92 H 19 95 08/02/19 22:03 94 H 17 127/86 94 08/02/19 21:14 28 H 100 08/02/19 21:08 36.6 C 87 28 H 118/78 100 Laboratory Results Laboratory Results WBC 12.10 K/uL (4.8-10.8) H 08/02/19 22:51 RBC 5.07 M/uL (4.7-6.1) 08/02/19 22:51 Hgb 16.0 g/dL (14.0-18.0) 08/02/19 22:51 Hct 46.0 % (42-52) 08/02/19 22:51 MCV 90.7 fL (80-100) 08/02/19 22:51 MCH 31.6 pg (25-34) 08/02/19 22:51 MCHC 34.8 g/dL (32-36) 08/02/19 22:51 RDW Std Deviation 43.2 fL (36.4-46.3) 08/02/19 22:51 RDW Coeff of [place] 13.0 % (11.5-14.5) 08/02/19 22:51 Plt Count 292 K/uL (130-400) 08/02/19 22:51 MPV 12.3 fL (7.4-10.4) H 08/02/19 22:51 Immature Gran % (Auto) 0.3 % 08/02/19 22:51 Neut % (Auto) 80.7 % 08/02/19 22:51 Lymph % (Auto) 5.3 % 08/02/19 22:51 Ray % (Auto) 10.9 % 08/02/19 22:51 Eos % (Auto) 2.3 % 08/02/19 22:51 Baso % (Auto) 0.5 % 08/02/19 22:51 Immature Gran # (Auto) 0.04 K/uL (0.00-0.02) H 08/02/19 22:51 Neut # (Auto) 9.76 K/uL (1.4-6.5) H 08/02/19 22:51 Lymph # (Auto) 0.64 K/uL (1.2-3.4) L 08/02/19 22:51 Ray # (Auto) 1.32 K/uL (0.11-0.59) H 08/02/19 22:51 Eos # (Auto) 0.28 K/uL (0-0.5) 08/02/19 22:51 Baso # (Auto) 0.06 K/uL (0-0.2) 08/02/19 22:51 Sodium 138 mmol/L (136-145) 08/02/19 22:51 Potassium 3.6 mmol/L (3.5-5.1) 08/03/19 00:06 Chloride 104 mmol/L (98-107) 08/02/19 22:51 Carbon Dioxide 24 mmol/L (21-32) 08/02/19 22:51 Anion Gap 11.0 (3-11) 08/02/19 22:51 BUN 29 mg/dl (7-18) H 08/02/19 22:51 Creatinine 1.09 mg/dl (0.6-1.4) 08/02/19 22:51 Est Cr Clr Drug Dosing Not Reportable 08/02/19 22:51 Est GFR ( Amer) 88.1 08/02/19 22:51 Est GFR (Non-Af Amer) 76.0 08/02/19 22:51 BUN/Creatinine Ratio 26.1 (10-20) H 08/02/19 22:51 Glucose 131 mg/dl (70-99) H 08/02/19 22:51 Calcium 9.7 mg/dl (8.5-10.1) 08/02/19 22:51 Magnesium 1.7 mg/dl (1.8-2.4) L 08/03/19 00:06 Total Bilirubin 0.9 mg/dl (0.2-1) 08/02/19 22:51 AST 26 U/L (15-37) 08/03/19 00:06 ALT 70 U/L (12-78) 08/02/19 22:51 Alkaline Phosphatase 144 U/L (45-117) H 08/02/19 22:51 Troponin I < 0.015 ng/ml (0-0.045) 08/02/19 22:51 Total Protein 7.3 gm/dl (6.4-8.2) 08/02/19 22:51 Albumin 3.3 gm/dl (3.4-5.0) L 08/02/19 22:51 Globulin 4.0 gm/dl (2.5-4.0) 08/02/19 22:51 Albumin/Globulin Ratio 0.8 (0.9-2) L 08/02/19 22:51 TSH 0.924 uIu/ml (0.300-4.500) 08/02/19 22:[address] chest initial read: Right pneumothorax occupying approximately 25% of the right hemithorax. No evidence of pulmonary embolism. Tracheostomy tube in place. Small sliding hiatal hernia. CT abdomen pelvis initial read. 3 mm nonobstructing left renal stone with mild left hydronephrosis possibly related to UPJ stenosis. Gastric tube in place. Moderate stool in colon. Appendix not identified. EKG as per my interpretation: Rate 85, NSR, LAD, LAFB, T wave flattening inferior leads, low voltage
[2019-08-03] MEDS ORDERED: fentaNYL 12 MCG/HR TDSY TD SCH (02:00)
[2019-08-03] MEDS ORDERED: PROMETHAZINE HCL 12.5 MG in SODIUM CHLORIDE 0.9% 50 ML IV STA (02:03)
[2019-08-03] MEDS ORDERED: PROMETHAZINE 12.5 MG/50.5 ML NSS IV ONE (02:19)
[2019-08-03] MEDS ORDERED: NORMOSOL-R 1,000 ML IV ONE ×2 (02:30→05:00)
[2019-08-03] MEDS ORDERED: MAGNESIUM SULFATE / D5W 1 GM/100 ML BAG IV ONE (02:30)
[2019-08-03 02:55] LABS: Appearance Urine Turbid (Clear); Bilirubin Urine Negative (Negative); Blood Urine Negative (Negative); Color Urine Dark Yellow; Epithelial Cell Urine Auto >30 /lpf (0-5); Glucose Urine UA Negative (Negative); Ketones Urine 2+ (Negative); Leukocyte Esterase Urine 1+ (Negative); Nitrite Urine Negative (Negative); Specific Gravity Urine 1.024 (1.000-1.030); Urobilinogen Urine Negative (Negative); pH Urine >= 9.0 (4.5-7.5)
[2019-08-03 03:16] LABS: Protein Urine Negative (Negative); Sulfosalicylic Acid Urine Negative (Negative)
[2019-08-03 03:17] LABS: Bacteria Urine Automated 1+ (Negative); RBC Urine Automated 0-4 /hpf (0-4)
[2019-08-03] MEDS ORDERED: OPTIRAY 320 125ml IV PRN (03:38)
[2019-08-03] MEDS ORDERED: KETOROLAC TROMETHAMINE 15 MG/ML VIAL IV PRN (03:58)
[2019-08-03] MEDS ORDERED: MoRPHine SULFATE 10 MG/0.5 ML UDP GT PRN (03:58)
[2019-08-03] MEDS ORDERED: ACETAMINOPHEN 325 MG TAB PO PRN (03:58)
[2019-08-03] MEDS ORDERED: EMOLLIENT OINTMENT 1 GM EXT PRN (03:58)
[2019-08-03] MEDS ORDERED: MoRPHine SULFATE 2 MG/ML CARP IV PRN (03:58)
[2019-08-03] MEDS ORDERED: LORazepam 0.25 MG/0.5 ML VIAL IV PRN (03:58)
[2019-08-03] MEDS ORDERED: DiphenhydrAMINE HCL 50 MG/ML VIAL IV PRN (03:58)
--- NOTE | 2019-08-03 04:15 | Emergency Department Note ---
History of Present Illness General Chief complaint: Weakness Stated complaint: WEAKNESS NAUSEA Time Seen by Provider: 08/02/19 22:36 History of Present Illness This is a 54-year-old male presenting to the emergency department for evaluation of generalized weakness, fatigue, nausea, vomiting, and cough. The patient has an extensive medical history including squamous cell cancer of the larynx, tracheostomy tube, PEG tube, and stroke. The patient completed chemotherapy about 2 weeks ago and was initially doing somewhat well. Over the past several days he has had worsening weakness and fatigue. He was recently transitioned to a fentanyl patch, and is on day 7 or 8 of this new medication. This is helping some of his discomfort, and is unsure if this is related. The patient has not had distinct fevers or chills. His cough is quite persistent, and he will occasionally vomit when this occurs. He does not report any blood or bleeding from around the trach. No significant diarrhea or change in using the bathroom. The patient rates his current discomfort a 5/10. Home Medications Home Medications Medication Instructions Recorded Confirmed Type atorvastatin 80 mg PO HS 04/19/19 08/03/19 History clopidogrel 75 mg PO QAM 04/19/19 08/03/19 History dronabinol [Marinol] 5 mg PO BIDM 04/19/19 08/03/19 History erenumab-aooe [Aimovig 140 mg SUBCUT MONTHLY 04/19/19 08/03/19 History Autoinjector] lisinopril 10 mg FEEDING TUBE QAM 04/19/19 08/03/19 History lorazepam 0.5 mg PO TID PRN 04/19/19 08/03/19 History omega 4-epv-cjq-fish oil [Fish Oil] 1 cap PO BID 04/19/19 08/03/19 History pantoprazole 20 mg PO DAILYBB 04/19/19 08/03/19 History promethazine 25 mg PO Q4H PRN 04/19/19 08/03/19 History tizanidine [Zanaflex] 4 - 8 mg FEEDING TUBE HS 04/19/19 08/03/19 History ondansetron HCl [Zofran] 8 mg PO Q8 PRN 05/26/19 08/03/19 History aspirin 81 mg FEEDING TUBE QAM 06/06/19 08/03/19 History doxycycline hyclate 100 mg FEEDING TUBE BID 06/06/19 08/03/19 History saw-vit E-sod lcm-bar-jrtl-pyg 1 tab PO DAILY 06/06/19 08/03/19 History [Prostate Health] morphine concentrate 100 mg/5 mL 10 mg PO Q4H PRN ml 07/04/19 08/03/19 History (20 mg/mL) oral solution sertraline 20 mg/mL oral 25 mg FEEDING TUBE DAILY 07/09/19 08/03/19 History concentrate famotidine-Ca carb-mag hydrox 1 tab FEEDING TUBE DIRECTED PRN 08/03/19 08/03/19 History [Pepcid Complete] fentanyl 1 patch TRANSDERMAL Q72H 08/03/19 08/03/19 History Allergies Allergy/AdvReac Type Severity Reaction Status Date / Time No Known Allergies Allergy Verified 08/03/19 00:46 Past Med/Surg History Medical History CVA (cerebral vascular accident) 07/2013--vision deficits, balance deficits, headaches--follows with Dr. Shepard, on plavix Hypertension (Acute) High cholesterol (Acute) Anxiety Difficult airway for intubation per [facility] after throat biopsy GERD (gastroesophageal reflux disease) Hearing deficit On anticoagulant therapy plavix daily Sleep apnea cpap Syncopal episodes had one last night 05/08/19 "turned blue and passed out" pt refused to go to ER Throat cancer 03/2019--just diagnosed, to start radiation 05/15/19 Surgical History History of biopsy throat to diagnose cancer--lung was punctured during procedure and had to hav e a chest tube. Pt was also informed that he "had a difficulty airway". History of cardiac cath 2012--no stents History of chest tube placement 04/19/2019 History of colonoscopy History of tonsillectomy History of tooth extraction History of wisdom tooth extraction Status post myringotomy with tube placement of both ears Social History Preferred Language: Jamaican Communication Ability: Impaired Communication Ability Comment: has trach, speaking difficult Procurement Assistant Required: No Beliefs That Will Affect Care: None Current Living Situation: Spouse Feels Safe at Home: Yes Safety Concerns: Feels Safe At This Time Smoking Status: Former smoker Tobacco Type: cigarettes ; Do You Dip or Chew Tobacco: No ; Second Hand Exposure: No ; Hx Alcohol Use: No Hx Substance Use: No Review of Systems A total of 10 systems reviewed and were otherwise negative Physical Exam Vital Signs Vital Signs - 24 hr 08/02/19 21:08 08/02/19 21:14 08/02/19 22:03 Temperature 36.6 C Temperature Source Oral Sepsis Recent Fever Within 48 Hours No No Sepsis New/Unexplained Change in Mental Status No No Sepsis Action Taken by Nursing No Action Required No Action Required Pulse Rate 87 94 H Pulse Rate [Right Finger] Pulse Rate from SpO2 Sensor 95 H Pulse Rhythm [Right Finger] Pulse Strength [Right Finger] Respiratory Rate 28 H 28 H 17 Respiratory Effort / Characteristics Respiratory Depth Shallow Shallow Respiratory Pattern Blood Pressure 118/78 127/86 Blood Pressure [Right Arm] Blood Pressure Mean 91 99 Blood Pressure Mean [Right Arm] Blood Pressure Position [Right Arm] Pulse Oximetry 100 100 94 Oxygen Delivery Method Room Air 08/02/19 22:15 08/02/19 22:30 08/02/19 22:31 Temperature Temperature Source Sepsis Recent Fever Within 48 Hours Sepsis New/Unexplained Change in Mental Status Sepsis Action Taken by Nursing Pulse Rate 92 H 90 Pulse Rate [Right Finger] Pulse Rate from SpO2 Sensor 93 H 92 H Pulse Rhythm [Right Finger] Pulse Strength [Right Finger] Respiratory Rate 19 17 Respiratory Effort / Characteristics Respiratory Depth Respiratory Pattern Blood Pressure 131/83 Blood Pressure [Right Arm] Blood Pressure Mean 99 Blood Pressure Mean [Right Arm] Blood Pressure Position [Right Arm] Pulse Oximetry 95 96 96 Oxygen Delivery Method Room Air 08/02/19 22:49 08/02/19 22:53 08/02/19 22:57 Temperature Temperature Source Sepsis Recent Fever Within 48 Hours Sepsis New/Unexplained Change in Mental Status Sepsis Action Taken by Nursing Pulse Rate 114 H Pulse Rate [Right Finger] 118 H 120 H Pulse Rate from SpO2 Sensor Pulse Rhythm [Right Finger] Regular Pulse Strength [Right Finger] Normal Respiratory Rate 22 19 20 Respiratory Effort / Characteristics Non-Labored Non-Labored Respiratory Depth Normal Respiratory Pattern Regular Blood Pressure Blood Pressure [Right Arm] 131/83 Blood Pressure Mean Blood Pressure Mean [Right Arm] 99 Blood Pressure Position [Right Arm] Sitting Pulse Oximetry 96 96 95 Oxygen Delivery Method Room Air Room Air Room Air 08/03/19 00:16 08/03/19 01:10 Temperature Temperature Source Sepsis Recent Fever Within 48 Hours Sepsis New/Unexplained Change in Mental Status Sepsis Action Taken by Nursing Pulse Rate Pulse Rate [Right Finger] 113 H 104 H Pulse Rate from SpO2 Sensor Pulse Rhythm [Right Finger] Regular Regular Pulse Strength [Right Finger] Normal Normal Respiratory Rate 16 16 Respiratory Effort / Characteristics Non-Labored Non-Labored Respiratory Depth Normal Normal Respiratory Pattern Regular Regular Blood Pressure Blood Pressure [Right Arm] 129/85 139/90 Blood Pressure Mean Blood Pressure Mean [Right Arm] 99 106 Blood Pressure Position [Right Arm] Lying Pulse Oximetry 97 99 Oxygen Delivery Method Room Air Room Air VITALS: Vitals are noted on the nurse's note and reviewed by myself. Vital signs stable. GENERAL: Chronically ill-appearing male who is quite uncomfortable on examination. He is with a very dry cough, and is exhibiting some posttussive emesis. The emesis is coming from both the mouth and the tracheostomy. HEAD: Normocephalic atraumatic. MOUTH: Mucous membranes moist. Tonsils are not enlarged. Pharynx without erythema, blood, or exudate. Uvula midline. Airway patent. NECK: Supple without nuchal rigidity. Tracheostomy is without bleeding and appears patent. HEART: Regular rate and rhythm without murmurs gallops or rubs. LUNGS: Generally clear with right-sided lower coarseness. No distinct crackles. MUSCULOSKELETAL: No muscle atrophy, erythema, or edema noted. Full range of motion in all extremities. NEURO: Patient was alert and oriented to person place and time. CN II through XII grossly intact. Course Administered Medications Fentanyl (Duragesic) 12 mcg TD Q3D EVERARDO Stop: 08/17/19 01:59 Last Admin: 08/03/19 04:36 Dose: Not Given Documented by: [id number] Potassium Chloride (K Sam / Wtr) 10 meq in 100 mls @ 100 mls/hr IV Q1H EVERARDO Stop: 08/03/19 06:59 Last Admin: 08/03/19 05:28 Dose: 100 mls/hr Documented by: [id number] Ioversol (Optiray 320 125ml) 125 ml IV ONCE PRN PRN Reason: Interaction Checking Stop: 08/07/19 03:37 Last Admin: 08/03/19 03:38 Dose: 118 ml Documented by: [id number] Discontinued Medications Albuterol (Duoneb) 3 ml NEB NOW STA Stop: 08/02/19 22:43 Last Admin: 08/02/19 22:57 Dose: 3 ml Documented by: [id number] Fentanyl (Duragesic) Confirm Administered Dose 12 mcg TD .STK-MED ONE Stop: 08/03/19 04:26 Last Admin: 08/03/19 04:30 Dose: 12 mcg Documented by: [id number] Sodium Chloride (Nss 1000ml) 1,000 mls @ 999 mls/hr IV .Q1H1M EVERARDO Stop: 08/02/19 23:45 Last Infusion: 08/03/19 00:32 Dose: 0 mls/hr Documented by: [id number] Admin: 08/02/19 23:02 Dose: 999 mls/hr Documented by: [id number] Parenteral Electrolytes (Normosol-R) 1,000 mls @ 500 mls/hr IV .Q2H ONE Stop: 08/03/19 04:29 Last Admin: 08/03/19 04:50 Dose: 500 mls/hr Documented by: [id number] Magnesium Sulfate/Dextrose (Magnesium Sulfate / D5w) 1 gm in 100 mls @ 100 mls/hr IV ONE ONE Stop: 08/03/19 03:29 Last Infusion: 08/03/19 05:00 Dose: 0 mls/hr Documented by: [id number] Admin: 08/03/19 02:37 Dose: 100 mls/hr Documented by: [id number] Ondansetron HCl (Zofran) 4 mg IV NOW STA Stop: 08/02/19 22:43 Last Admin: 08/02/19 23:02 Dose: 4 mg Documented by: [id number] Promethazine HCl (Phenergan) Confirm Administered Dose 12.5 mg IV .STK-MED ONE Stop: 08/03/19 02:20 Last Admin: 08/03/19 03:17 Dose: Not Given Documented by: [id number] Medical Decision Making Differential Diagnosis Differential includes posttussive emesis, pneumonia, aspiration event, cancer, acute coronary syndrome, myocardial infarction, CVA, TIA, anemia, infection, pneumonia, UTI, pyelonephritis, poor nutrition, dehydration, electrolyte disturbance,hypoglycemia. Laboratory Data Result diagrams: 08/02/19 22:51 08/03/19 00:06 Lab Results 08/02/19 08/02/19 08/03/19 Range/Units 22:51 22:51 00:06 WBC 12.10 H (4.8-10.8) K/uL RBC 5.07 (4.7-6.1) M/uL Hgb 16.0 (14.0-18.0) g/dL Hct 46.0 (42-52) % MCV 90.7 (80-100) fL MCH 31.6 (25-34) pg MCHC 34.8 (32-36) g/dL RDW Std Deviation 43.2 (36.4-46.3) fL RDW Coeff of [place] 13.0 (11.5-14.5) % Plt Count 292 (130-400) K/uL MPV 12.3 H (7.4-10.4) fL Immature Gran % (Auto) 0.3 % Neut % (Auto) 80.7 % Lymph % (Auto) 5.3 % [place] % (Auto) 10.9 % Eos % (Auto) 2.3 % Baso % (Auto) 0.5 % Immature Gran # (Auto) 0.04 H (0.00-0.02) K/uL Neut # (Auto) 9.76 H (1.4-6.5) K/uL Lymph # (Auto) 0.64 L (1.2-3.4) K/uL [place] # (Auto) 1.32 H (0.11-0.59) K/uL Eos # (Auto) 0.28 (0-0.5) K/uL Baso # (Auto) 0.06 (0-0.2) K/uL Sodium 138 (136-145) mmol/L Potassium 3.6 (3.5-5.1) mmol/L Chloride 104 (98-107) mmol/L Carbon Dioxide 24 (21-32) mmol/L Anion Gap 11.0 (3-11) BUN 29 H (7-18) mg/dl Creatinine 1.09 (0.6-1.4) mg/dl Est Cr Clr Drug Dosing Not Reportable Est GFR ( Amer) 88.1 Est GFR (Non-Af Amer) 76.0 BUN/Creatinine Ratio 26.1 H (10-20) Glucose 131 H (70-99) mg/dl Calcium 9.7 (8.5-10.1) mg/dl Magnesium 1.7 L (1.8-2.4) mg/dl Total Bilirubin 0.9 (0.2-1) mg/dl AST 26 (15-37) U/L ALT 70 (12-78) U/L Alkaline Phosphatase 144 H (45-117) U/L Troponin I < 0.015 (0-0.045) ng/ml Total Protein 7.3 (6.4-8.2) gm/dl Albumin 3.3 L (3.4-5.0) gm/dl Globulin 4.0 (2.5-4.0) gm/dl Albumin/Globulin Ratio 0.8 L (0.9-2) Lipase (73-393) U/L Procalcitonin (0-0.5) ng/ml TSH 0.924 (0.300-4.500) uIu/ml 08/03/19 08/03/19 Range/Units 00:06 00:15 WBC (4.8-10.8) K/uL RBC (4.7-6.1) M/uL Hgb (14.0-18.0) g/dL Hct (42-52) % MCV (80-100) fL MCH (25-34) pg MCHC (32-36) g/dL RDW Std Deviation (36.4-46.3) fL RDW Coeff of [place] (11.5-14.5) % Plt Count (130-400) K/uL MPV (7.4-10.4) fL Immature Gran % (Auto) % Neut % (Auto) % Lymph % (Auto) % [place] % (Auto) % Eos % (Auto) % Baso % (Auto) % Immature Gran # (Auto) (0.00-0.02) K/uL Neut # (Auto) (1.4-6.5) K/uL Lymph # (Auto) (1.2-3.4) K/uL [place] # (Auto) (0.11-0.59) K/uL Eos # (Auto) (0-0.5) K/uL Baso # (Auto) (0-0.2) K/uL Sodium (136-145) mmol/L Potassium (3.5-5.1) mmol/L Chloride (98-107) mmol/L Carbon Dioxide (21-32) mmol/L Anion Gap (3-11) BUN (7-18) mg/dl Creatinine (0.6-1.4) mg/dl Est Cr Clr Drug Dosing Est GFR ( Amer) Est GFR (Non-Af Amer) BUN/Creatinine Ratio (10-20) Glucose (70-99) mg/dl Calcium (8.5-10.1) mg/dl Magnesium (1.8-2.4) mg/dl Total Bilirubin (0.2-1) mg/dl AST (15-37) U/L ALT (12-78) U/L Alkaline Phosphatase (45-117) U/L Troponin I (0-0.045) ng/ml Total Protein (6.4-8.2) gm/dl Albumin (3.4-5.0) gm/dl Globulin (2.5-4.0) gm/dl Albumin/Globulin Ratio (0.9-2) Lipase 196 (73-393) U/L Procalcitonin 0.06 (0-0.5) ng/ml TSH (0.300-4.500) uIu/ml MDM Narrative Physical exam and history were performed. Nursing notes, EMR, and Medication List were personally reviewed. Patient appears to have cough, nausea, vomiting, and generalized illness. He does have a recent history of cancer. On my presentation to the room the patient is coughing and with emesis both from the mouth and the tracheostomy opening. We did suction the tracheostomy, and the patient was able to improve with supportive care. IV access was established and labs were obtained. He was hydrated with normal saline. He was provided a DuoNeb as well as IV Zofran. He was placed on the court recording monitor. The patient's blood work is as above and was reviewed. He does have a mildly elevated white blood cell count of 12,000. Transaminases are not diagnostic. Urine is without gross infection with cultures pending. Lipase is nondiagnostic. Troponin x1 is negative. Chest x-ray appears to show appropriate positioning of the trach. He does not appear to have an obvious pneumonia, but also does seem to have a right pneumothorax. Overall the patient does not appear well for discharge home. He did not have repeat emesis, but I certainly am concerned about possible infectious or aspiration event. The case was discussed with the [facility] hospitalist who agreed to evaluate the patient here in the department. Please see their dictation for further patient course, plan, and disposition. The chart was completed utilizing [employer] Speech Voice Recognition Software. Grammatical errors, random word insertions, pronoun errors, and incomplete sentences are an occasional consequence of this system due to software limitations, ambient noise, and hardware issues. Any formal questions or concerns about the content, text, or information contained within the body of this dictation should be directly addressed to the provider for clarification. . Impression & Plan Weakness, Nausea & vomiting, Cough, Pneumothorax Discharge Plan Visit Data *Final* Discharge Date/Time: 08/03/19 03:40 Chief Complaint: Weakness Stated Complaint: WEAKNESS NAUSEA ED Provider: Shen Villeda ED Midlevel Provider: Jakob Falcon Discharge Problem: Weakness, Nausea & vomiting, Cough, Pneumothorax Patient Disposition: Admitted As Inpatient Discharge Instructions Interventions: ED Discharge Assessment Last Done: 08/03/19 03:40 Discharge Problem: Nausea & vomiting Qualifiers: Vomiting type: unspecified Vomiting Intractability: non-intractable Qualified Code(s): R11.2 - Nausea with vomiting, unspecified Pneumothorax Qualifiers: Pneumothorax type: unspecified pneumothorax Qualified Code(s): J93.9 - Pneumothorax, unspecified
[2019-08-03] MEDS ORDERED: fentaNYL 12 MCG/HR TDSY TD ONE (04:25)
[2019-08-03] MEDS: POTASSIUM CHLORIDE / WTR 10 MEQ/100 ML PLCT IV SCH ×2 (05:28→06:45)
[2019-08-03] MEDS ORDERED: AQUAPHOR OINT 454 GM JAR EXT PRN (05:42)
[2019-08-03] MEDS ORDERED: AMPICILLIN/SULBACTAM CONSULT ACTIVE PRN (06:11)
[2019-08-03] MEDS: LANSOPRAZOLE 15 MG SOLTAB PO SCH (06:22)
[2019-08-03] MEDS ORDERED: AMPICILLIN/SULBACTAM SOD 3,000 MG in 0.9 % SODIUM CHLORIDE 100 ML IV ONE (06:30)
[2019-08-03] MEDS ORDERED: ACETAMINOPHEN SOL 650 MG/20.3 ML UDC PEG PRN (06:33)
[2019-08-03] MEDS ORDERED: XOPENEX/ATROVENT 1.25mg/0.5MG NEB COMBO NEB PRN (06:47)
[2019-08-03] MEDS ORDERED: LEVALBUTEROL 1.25MG/0.5ML NEB INH PRN (07:00)
[2019-08-03] MEDS ORDERED: IPRATROPIUM BROMIDE NEB SOLN 0.02% 2.5 ML VIAL INH PRN (07:00)
--- NOTE | 2019-08-03 07:03 | XRay Report ---
XR chest 2V PA/lateral CLINICAL HISTORY: 54 years-old Male presenting with cough. TECHNIQUE: PA and lateral views of the chest were obtained. COMPARISON: 05/26/2019. FINDINGS: Tracheostomy tube in place. Cardiac silhouette top normal in size. Moderate right pneumothorax with p leural separation of over 3 cm at the apex. Lungs remain clear. No pleural effusion. Degenerative jose l nges of the thoracic spine. Upper abdomen normal. IMPRESSION: 1. Moderate right pneumothorax. No evidence of tension. 2. This was appreciated on preliminary interpretation over night. Electronically signed by: Magdaleno Macario M.D. 08/03/2019 7:02 AM
[2019-08-03 08:07] LABS: Basophils # (auto) 0.03 K/uL (0-0.2); Basophils % (auto) 0.5 %; Eosinophils % (auto) 3.6 %; Hematocrit (blood only) 41.9 % (42-52); Hemoglobin 14.1 g/dL (14.0-18.0); Immature Granulocytes # (auto) 0.01 K/uL (0.00-0.02); Immature Granulocytes % (auto) 0.2 %; Lymphocytes # (auto) 0.48 K/uL (1.2-3.4); Lymphocytes % (auto) 8.6 %; Mean Corpuscular Hemoglobin 30.9 pg (25-34); Mean Corpuscular Hgb Conc 33.7 g/dL (32-36); Mean Corpuscular Volume 91.7 fL (80-100); Mean Platelet Volume 11.9 fL (7.4-10.4); Monocytes # (auto) 0.79 K/uL (0.11-0.59); Monocytes % (auto) 14.2 %; Neutrophils # (auto) 4.04 K/uL (1.4-6.5); Neutrophils % (auto) 72.9 %; Platelet Count 217 K/uL (130-400); RDW Coefficient of Variation 13.2 % (11.5-14.5); Red Blood Count 4.57 M/uL (4.7-6.1); White Blood Count 5.55 K/uL (4.8-10.8)
[2019-08-03] MEDS: DRONABINOL 2.5 MG CAP PO SCH ×2 (08:13→17:34)
[2019-08-03] MEDS: ASPIRIN 81 MG CHEW PO SCH (08:13)
[2019-08-03] MEDS: ENOXAPARIN INJ 30 MG/0.3 ML SYR SQ SCH (08:13)
[2019-08-03] MEDS: DOXYCYCLINE HYCLATE 100 MG CAP PO SCH ×2 (08:14→20:08)
[2019-08-03] MEDS: lisinopriL 10 MG TAB PO SCH (08:14)
[2019-08-03] MEDS: CLOPIDOGREL BISULFATE 75 MG TAB PEG SCH (08:14)
[2019-08-03] MEDS: SERTRALINE HCL 50 MG TABLET PEG SCH (08:14)
--- NOTE | 2019-08-03 08:23 | CT Scan Report ---
CT ANGIOGRAM OF THE CHEST; CT SCAN OF THE ABDOMEN AND PELVIS WITH IV CONTRAST CLINICAL HISTORY: Head and neck cancer. Dyspnea. Generalized abdominal pain. COMPARISON STUDY: Chest x-ray dated 08/02/2019. PET/CT dated 04/18/2019. TECHNIQUE: Following the IV administration of 118 of Optiray 320, CT angiogram of the chest is perfor med from the upper abdomen to the thoracic inlet utilizing the pulmonary embolus protocol. Images are reviewed in the axial, sagittal, coronal planes. 3-D MIPS images are created and assessed. Subsequen tly, CT scan of the abdomen and pelvis was performed from the lung bases to the proximal femora. Imag es are reviewed in the axial, sagittal, and coronal planes. IV contrast was administered without comp lication. A dose lowering technique was utilized adhering to the principles of ALARA. CT DOSE: 1579.20 mGy.cm FINDINGS: CHEST: Thyroid: Imaged portions of the thyroid gland are normal in size and attenuation. Thoracic aorta: The thoracic aorta is normal in caliber and demonstrates standard 3-vessel arch anato my. No dissection is seen. There is approximately 50% focal stenosis of the proximal left subclavian artery secondary to soft plaque. Pulmonary vasculature: The pulmonary trunk is normal in caliber. There are no filling defects identif ied in the main, lobar, or segmental pulmonary arteries to indicate pulmonary embolus. Heart: The heart is top normal in size and there is trace pericardial effusion. The coronary arteries are densely calcified. Lungs and pleural spaces: A tracheostomy is in place. There is a moderate right anterior and basilar pneumothorax. There is no airspace consolidation typical for pneumonia or pleural effusion. The trach ea and central airways are clear. No concerning pulmonary lesion is identified. Mediastinum: There is no mediastinal lymphadenopathy. [place]: Clear. Axillae: There is no axillary lymphadenopathy. Bony thorax: No lytic or blastic lesions are identified. ABDOMEN AND PELVIS: Liver: The contrast-enhanced liver is normal in size, contour, and attenuation. There is no intrahepa tic or ductal dilatation. The hepatic veins and portal veins are patent. Gallbladder: The gallbladder is distended. The gallbladder wall appears mildly thickened and hyperemi c. No calcified gallstones are identified. And there is no significant surrounding inflammation. Spleen: Normal in size and attenuation. Pancreas: Unremarkable. Adrenal glands: Unremarkable. Kidneys: The contrast enhanced kidneys are normal in size and. There is mild left-sided hydronephrosi s with no obstructing lesion seen. The kidneys enhance symmetrically. There is a 4 mm nonobstructing calculus in the lower pole of the left kidney. Abdominal vasculature: The abdominal aorta is normal in course and caliber noting mild atheroscleroti c calcification. Bowel: There is a small to moderate hiatal hernia. A gastrostomy tube is present in the distal stomac h. The duodenum is normal in configuration. No bowel obstruction is seen. The appendix is well-visua lized and normal. Peritoneum: There is no intraperitoneal free air or abdominal ascites. Lymphadenopathy: None. Pelvic viscera: The prostate gland is enlarged, measuring 6.1 cm in transverse diameter. The bladder is decompressed and grossly unremarkable Skeletal structures: A 1 cm bone island is noted in the right aspect of the sacrum. No lytic or blast ic lesions are seen. IMPRESSION: 1. There is no evidence of pulmonary embolus in the main, lobar, or segmental pulmonary arteries. 2. Moderate right-sided pneumothorax. 3. There is no airspace consolidation or pleural effusion. 4. There is no evidence of metastatic disease in the chest, abdomen, or pelvis. 5. The gallbladder is distended and the wall appears mildly thickened and hyperemic. No significant i nflammation is seen. This is of indeterminate significance, and if there is clinical concern for acut e cholecystitis a right upper quadrant ultrasound should be considered. 6. Prostatomegaly. 7. Left-sided nephrolithiasis. 8. There is mild left-sided hydronephrosis with no obstructing lesion seen. This may have minimally i ncreased from the 04/18/2019 PET examination. A UPJ type obstruction could have this appearance. Consi diya nonemergent follow-up with urology. 9. Additional findings as above. Electronically signed by: Vance Pineda M.D. 08/03/2019 8:21 AM
[2019-08-03 08:29] LABS: BUN Creatinine Ratio 32.8 (10-20); Calcium 8.3 mg/dl (8.5-10.1); Est GFR (African American) 121.7; Magnesium 2.1 mg/dl (1.8-2.4); Potassium 3.9 mmol/L (3.5-5.1)
[2019-08-03] MEDS ORDERED: NON-FORMULARY PATIENT'S OWN MED SCH (09:00)
[2019-08-03] MEDS: predniSONE 20 MG TAB GT SCH (09:26)
[2019-08-03] MEDS: PEPCID COMPLETE PO SCH (11:30)
[2019-08-03] MEDS: AMPICILLIN/SULBACTAM SOD 3,000 MG in 0.9 % SODIUM CHLORIDE 100 ML IV SCH ×3 (11:49→23:40)
[2019-08-03] MEDS: TRIAMCINOLONE ACET 0.025% CR 15 GM TUBE EXT SCH ×2 (13:40→20:09)
[2019-08-03] MEDS ORDERED: POLYETHYLENE (MIRALAX) 17 GM PACK PO PRN (13:45)
[2019-08-03] MEDS ORDERED: [UNRECOGNIZED DRUG - OTHER] PEG SCH (14:00)
[2019-08-03] MEDS: PROMETHAZINE HCL 12.5 MG in SODIUM CHLORIDE 0.9% 50 ML IV PRN (14:19)
[2019-08-03] MEDS: CHECK FENTANYL PATCH PLACEMENT SCH ×2 (15:34→23:41)
--- NOTE | 2019-08-03 16:56 | XRay Report ---
XR chest 1V portable CLINICAL HISTORY: pneumothorax COMPARISON STUDY: 08/02/2019 FINDINGS: The cardiac and mediastinal contours remain stable. A tracheostomy tube is again visualized . There is slight interval decrease in the size of the right apical pneumothorax which currently has a pleural separation of 26 mm. There is no lobar consolidation.[ IMPRESSION: Slight interval decrease in the size of the right pneumothorax which has a pleural separa tion of 26 mm. Electronically signed by: Elliot Levy M.D. 08/03/2019 4:55 PM
--- NOTE | 2019-08-03 18:41 | Hospitalist Progress Note ---
Date of Service August 03, 2019 Assessment & Plan (1) SOB (shortness of breath): (2) Weakness: Possible related with narcotic vs recurrent pneumothorax vs aspiration pneumonitis CXR showed moderate right pneumothorax. CTA chest showed no evidence of pulmonary embolus in the main, lobar, or segmental pulmonary arteries. Moderate right-sided pneumothorax. WBC on admission elevated, now back to normal Procalcitonin wnl Continue IV Unasyn for now Pneumothorax CXR showed moderate right pneumothorax Thoracic surgery on board recommended conservative management for now Will repeat CXR Continue monitor closely Laryngeal carcinoma S/P tracheostomy Follow up with dr. Rabago oncologist Rash Continue doxycycline Prednisone adding Rash improves HTN BP stable Continue Lisinopril Hx CVA Continue Statin and aspirin Stable DVT px on Lovenox CODE STATUS FULL CODE Subjective Pt was seen and examined Lying in bed with no distress with and son at bedside Pt said that he feels a little better today said that pt is looking much better today denies any chest pain, palpitation, dizziness and SOB Physical Exam Physical Exam: General- No acute distress Head- atraumatic Eyes- PERRL, EOMI, ENT- +Tracheostomy in place, minimal cervical tenderness, Neck- supple, no JVD Lungs- Diminished BS Heart- regular rhythm; no murmur Abdomen- normal bowel sounds, soft, nontender Extremities- no calf tenderness Neuro- alert, oriented x 3; PERRL, EOMI; no facial palsy; no dysarthria Skin- +papular rash over patient's neck, anterior trunk, back, both upper extremities Results & Data Vital Signs (Past 12 Hours) Vital Signs Temp Pulse Pulse Resp BP Pulse Ox 08/03/19 16:15 75 08/03/19 14:48 36.9 C 80 20 126/76 97 08/03/19 11:36 36.5 C 72 20 112/71 99 08/03/19 07:17 72 08/03/19 07:01 36.9 C 76 18 117/71 94
[2019-08-03] MEDS: NUTREN ENTERAL FEEDING PEG SCH (20:23)
[2019-08-03] MEDS ORDERED: ATORVASTATIN 40 MG TAB PO SCH (21:00)
--- NOTE | 2019-08-04 01:46 | Consultation Report ---
DATE OF CONSULTATION: 08/03/2019 REASON FOR CONSULTATION: Recurrent right spontaneous pneumothorax. 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 I met him on 04/19/2019 with a spontaneous right pneumothorax and placed a chest tube at that time. He also had a spontaneous pneumothorax on his left and had a chest tube put in, in [place]. He presents now with skin changes from his radiation therapy. He has also had some nausea and vomiting, emesis and the rash appears to be improving with topical treatment with doxycycline and it is probably secondary to Erbitux. He was found to have another pneumothorax on the right and I was asked to evaluate him from a thoracic surgery standpoint. PAST MEDICAL HISTORY: 1. Squamous cell carcinoma of the larynx. 2. Status post chemotherapy and radiation. 3. Status post tracheostomy. 4. Bilateral spontaneous pneumothoraces. 5. Light history of cigarette smoking. 6. Hypertension. 7. Posterior circulation stroke. 8. Apparent Erbitux rash. PAST SURGICAL HISTORY: 1. Tracheostomy. 2. Bilateral chest tubes. 3. Insertion of a PEG tube. 4. Bilateral myringotomy tubes. MEDICATIONS: Please see chart, but include Plavix, erenumab monthly, pantoprazole, Zanaflex, Zofran, doxycycline, morphine oral solution, fentanyl patch, sertraline, Pepcid. ALLERGIES: No known drug allergies. SOCIAL HISTORY: The patient lives with his who is very supportive. He is a former smoker, but did not smoke for a long period. He does not use alcohol. He is not employed at this time. FAMILY MEDICAL HISTORY: His father had cancer of the colon, diabetes and coronary artery disease. His son and his mother are fairly healthy. REVIEW OF SYSTEMS: The patient had this rash which has been quite bothersome. He has had nausea and vomiting as listed in the history of present illness. He has generalized fatigue. His tracheostomy has been in place. He has been tolerating his tube feeds. He completed his chemotherapy about 2 weeks ago. He is having pain. He denies fevers or chills. He has a persistent cough. He has had no neurologic symptoms and has not had a seizure. Denies peripheral edema. Denies palpitations. PHYSICAL EXAMINATION: GENERAL: This is a 5 feet 10-inch, 225-pound male who is awake and alert. HEENT: His extraocular movements are intact. NECK AND CHEST: He has a rash that is involving his neck and there is a tie from his tracheostomy tube. He has irritation around the chest tube and his tracheostomy tube is just down around his neck and anterior chest along his arms. LUNGS: He has rhonchi upon evaluation of his lungs. I do not detect wheezing per se. He is able to talk, although his speech is difficult due to his trach. His neck is as described above. HEART: He has a regular rate and rhythm of his heart. He is moving air fairly well with a few rhonchi. MUSCULOSKELETAL: He has no joint effusions. EXTREMITIES: He is moving all extremities. He has good pulses. NEUROLOGIC: Neurologically, he is awake, alert and oriented with no focal deficits. ASSESSMENT AND PLAN: 1. Recurrent spontaneous right pneumothorax. On room air, the patient was 94% saturation. I asked the nurses to put him on 2 liters of O2 trach collar and we will see if we can get this pneumothorax to resolve without intervention. He does not appear to be in any distress and I would not be in a hurry to put another chest tube in him. I had a long discussion with the patient and his . We will check another chest x-ray today and make a decision about whether to offer him a tube or not.
[2019-08-04] MEDS: AMPICILLIN/SULBACTAM SOD 3,000 MG in 0.9 % SODIUM CHLORIDE 100 ML IV SCH ×2 (06:04→11:36)
[2019-08-04] MEDS: LANSOPRAZOLE 15 MG SOLTAB PO SCH (06:05)
[2019-08-04 06:31] LABS: Hematocrit (blood only) 43.2 % (42-52); Hemoglobin 14.5 g/dL (14.0-18.0); Mean Corpuscular Hemoglobin 30.5 pg (25-34); Mean Corpuscular Hgb Conc 33.6 g/dL (32-36); Mean Corpuscular Volume 90.9 fL (80-100); Mean Platelet Volume 11.9 fL (7.4-10.4); Platelet Count 214 K/uL (130-400); RDW Coefficient of Variation 13.2 % (11.5-14.5); RDW Standard Deviation 43.7 fL (36.4-46.3); Red Blood Count 4.75 M/uL (4.7-6.1); White Blood Count 6.15 K/uL (4.8-10.8)
[2019-08-04 06:57] LABS: BUN Creatinine Ratio 26.3 (10-20); Calcium 8.4 mg/dl (8.5-10.1); Creatinine Clr Calc Pharmacy 131.1 ml/min; Est GFR (African American) 118.4; Est GFR (Non-African American) 102.2; Potassium 3.8 mmol/L (3.5-5.1)
--- NOTE | 2019-08-04 07:08 | XRay Report ---
XR chest 1V portable HISTORY: 54 years-old Male pneumothorax follow-up study in a patient with reported pneumothorax COMPARISON: Chest radiograph 08/03/2019 TECHNIQUE: Portable AP view of the chest FINDINGS: Tracheostomy cannula overlies the midline, distal tip terminating 2.3 cm superior to the [place]. Card iomediastinal and hilar silhouettes are unchanged. Tortuosity of the descending thoracic aorta. Small right apical pneumothorax has slightly decreased in size from comparison study now with pleural sepa ration of 2.2 cm, previously 2.6 cm. Mild right hemidiaphragmatic elevation. No pleural effusion, ove rt pulmonary edema or lobar airspace consolidation. IMPRESSION: Mildly decreased size of the small right apical pneumothorax. The above report was generated using voice recognition software. It may contain grammatical, syntax o r spelling errors. Electronically signed by: Duarte Parisi M.D. 08/04/2019 7:07 AM
[2019-08-04] MEDS: DRONABINOL 2.5 MG CAP PO SCH (07:53)
[2019-08-04] MEDS: CHECK FENTANYL PATCH PLACEMENT SCH (07:56)
[2019-08-04] MEDS: PEPCID COMPLETE PO SCH (07:57)
[2019-08-04] MEDS: TRIAMCINOLONE ACET 0.025% CR 15 GM TUBE EXT SCH (07:57)
[2019-08-04] MEDS: predniSONE 20 MG TAB GT SCH (07:58)
[2019-08-04] MEDS: lisinopriL 10 MG TAB PO SCH (07:58)
[2019-08-04] MEDS: DOXYCYCLINE HYCLATE 100 MG CAP PO SCH (07:58)
[2019-08-04] MEDS: CLOPIDOGREL BISULFATE 75 MG TAB PEG SCH (07:58)
[2019-08-04] MEDS: ENOXAPARIN INJ 30 MG/0.3 ML SYR SQ SCH (07:59)
[2019-08-04] MEDS: ASPIRIN 81 MG CHEW PO SCH (07:59)
[2019-08-04] MEDS: SERTRALINE HCL 50 MG TABLET PEG SCH (07:59)
[2019-08-04] MEDS: NUTREN ENTERAL FEEDING PEG SCH ×2 (08:00→12:37)
[2019-08-04] MEDS: PROMETHAZINE HCL 12.5 MG in SODIUM CHLORIDE 0.9% 50 ML IV PRN (10:35)
--- NOTE | 2019-08-04 10:37 | Progress Note ---
DATE: 08/04/2019 Mr. Chappell was seen with his today. He looks better. Skin actually looks better. I checked a chest x-ray today and his pneumothorax is smaller. I think this will resolve without an intervention. From my standpoint, he can be discharged. I will see him back in a few days in the office with a chest x-ray.
[2019-08-04 11:29] VITALS: BP 119/79; PULSE 76; TEMP 98.1; O2SAT 96
--- NOTE | 2019-08-04 13:57 | Hospitalist Progress Note ---
Date of Service August 04, 2019 Assessment & Plan (1) SOB (shortness of breath): (2) Weakness: Possible related with narcotic vs recurrent pneumothorax vs aspiration pneumonitis CXR showed moderate right pneumothorax. CTA chest showed no evidence of pulmonary embolus in the main, lobar, or segmental pulmonary arteries. Moderate right-sided pneumothorax. WBC on admission elevated, now back to normal Procalcitonin wnl, blood cx no growth On IV Unasyn for now, will transition to augmentin Pneumothorax CXR showed moderate right pneumothorax CT chest showed moderate right-sided pneumothorax. Thoracic surgery on board recommended conservative management for now Repeat CXR in the morning showed mildly decreased size of the small right apical pneumothorax. Saturated well on RA Case discussed with Dr. Alicea and OK from thoracic surgery standpoint to discharge home Laryngeal carcinoma S/P tracheostomy Follow up with dr. Rabago oncologist Rash Continue doxycycline Continue Prednisone Rash improves significantly HTN BP stable Continue Lisinopril Hx CVA Continue Statin and aspirin Stable DVT px on Lovenox CODE STATUS FULL CODE Disposition Will discharge home today Subjective Pt was seen and examined Lying in bed with no distress Pt said that he feels much better today He said that his breathing his much better His rash improves significantly He said that he has been walking around with no distress Denies any chest pain, palpitation, dizziness and SOB Physical Exam Physical Exam: General- No acute distress Head- atraumatic Eyes- PERRL, EOMI, ENT- oropharynx clear Neck- supple, no JVD Lungs- +Tracheostomy in place, minimal cervical tenderness, Heart- regular rhythm; +murmur Abdomen- normal bowel sounds, soft, nontender Extremities- no calf tenderness Neuro- alert, oriented x 3; PERRL, EOMI; no facial palsy; no dysarthria Skin- +papular rash over patient's neck, anterior trunk, back, both upper extremities improves significantl Results & Data Vital Signs (Past 12 Hours) Vital Signs Temp Pulse Resp BP BP Pulse Ox 08/04/19 11:29 36.7 C 76 20 119/79 96 08/04/19 07:50 36.6 C 66 18 113/74 97 08/04/19 04:03 36.6 C 56 L 20 114/76 96
[2019-08-04] MEDS ORDERED: AMOXICILLIN/CLAVULANATE 875 MG TAB PO SCH (14:40)
--- NOTE | 2019-08-06 09:29 | Discharge Summary ---
Date of Service August 04, 2019 Admission HPI Per Admitting Provider History obtained from patient, family, and records. Limited history from patient secondary to tracheostomy. Medical history significant for laryngeal cancer sp chemoradiation, history recurrent postprocedural pneumothorax status post chest tube placement (March and April 2019), CVA, hypertension, hyperlipidemia, PVD, LORRIE as per records, chronic migraine, mood disorder, prediabetes as per records, past tobacco abuse, Erbitux rash ongoing Doxycycline Rx, chronic pain on Fentanyl patch. Recent confinement May 2019 for recurrent cough syncope. Patient completed chemoradiation last month. Started on Fentanyl patch last week by oncologist for neck pain. Patient miserable since last week. Feels he is going downhill. Pruritic truncal Erbitux rash had spread to both upper extremities and back the last week as per despite ongoing doxycycline via PEG, topical Rx by oncologist. Poor appetite, sleeping a lot, balance is off as per . About 20 to 30 pound weight loss in the last 2 months as per . Minimal achy abdominal discomfort, nausea, emesis, good bowel movement. Worsening junky cough symptoms with increasing shortness of breath. No chest pain. Patient brought to the ER by . Medical History as above Surgical History : Laryngoscopy, tonsillectomy, vascular procedure, ASD/PFO closure, tracheostomy, PEG tube placement, chest tube thoracostomy Family History : Heart disease, colon cancer, diabetes Personal/Social history : Past tobacco abuse, occasional EtOH intake, disabled Admission Exam Per Admitting Provider GENERAL: uncomfortable, no respiratory distress, occasionally coughing SKIN: Normal color, warm, crusty papular rash over patient's neck, anterior trunk, back, both upper extremities with some degree of erythema more prominent on both upper extremities HEENT: Alopecia, pink palpebral conjunctivae, no ptosis, dry buccal mucosa NECK : Supple, tracheostomy in place, minimal cervical tenderness, no crepitus CHEST : Decreased breath sounds, no wheezes, no tenderness HEART : Tachycardic , no obvious murmurs ABDOMEN: Some distention, PEG tube in place, nontender EXTREMITIES : No LE swelling/tenderness, no other conspicuous deformities noted NEUROLOGIC : Coherent, no facial asymmetry, no other gross focality Principal Diagnosis SOB (shortness of breath) Weakness Pneumothorax Laryngeal carcinoma Hypertension HX CVA Discharge Exam General- No acute distress Head- atraumatic Eyes- PERRL, EOMI, ENT- oropharynx clear Neck- supple, no JVD Lungs- +Tracheostomy in place, minimal cervical tenderness, Heart- regular rhythm; +murmur Abdomen- normal bowel sounds, soft, nontender Extremities- no calf tenderness Neuro- alert, oriented x 3; PERRL, EOMI; no facial palsy; no dysarthria Skin- +papular rash over patient's neck, anterior trunk, back, both upper extremities improves significantl Discharge Data Allergies Allergy/AdvReac Type Severity Reaction Status Date / Time No Known Allergies Allergy Verified 08/03/19 00:46 Consultations 08/03/19 00:54 ED Decision to Admit Stat 08/03/19 05:05 Consult Thoracic Surgery Routine Ordered Studies 08/03/19 01:59 CT angio chest PE protocol Urgent 08/03/19 02:29 CT abd pelvis IV con only Urgent XR chest 2V PA/lateral CLINICAL HISTORY: 54 years-old Male presenting with cough. TECHNIQUE: PA and lateral views of the chest were obtained. COMPARISON: 05/26/2019. FINDINGS: Tracheostomy tube in place. Cardiac silhouette top normal in size. Moderate right pneumothorax with pleural separation of over 3 cm at the apex. Lungs remain clear. No pleural effusion. Degenerative changes of the thoracic spine. Upper abdomen normal. IMPRESSION: 1. Moderate right pneumothorax. No evidence of tension. 2. This was appreciated on preliminary interpretation over night. Electronically signed by: Magdaleno Macario M.D. 08/03/2019 7:02 AM Dictated: 08/03/19658 Transcribed: 08/03/19658 CT ANGIOGRAM OF THE CHEST; CT SCAN OF THE ABDOMEN AND PELVIS WITH IV CONTRAST CLINICAL HISTORY: Head and neck cancer. Dyspnea. Generalized abdominal pain. COMPARISON STUDY: Chest x-ray dated 08/02/2019. PET/CT dated 04/18/2019. TECHNIQUE: Following the IV administration of 118 of Optiray 320, CT angiogram of the chest is performed from the upper abdomen to the thoracic inlet utilizing the pulmonary embolus protocol. Images are reviewed in the axial, sagittal, coronal planes. 3-D MIPS images are created and assessed. Subsequently, CT scan of the abdomen and pelvis was performed from the lung bases to the proximal femora. Images are reviewed in the axial, sagittal, and coronal planes. IV contrast was administered without complication. A dose lowering technique was utilized adhering to the principles of ALARA. CT DOSE: 1579.20 mGy.cm FINDINGS: CHEST: Thyroid: Imaged portions of the thyroid gland are normal in size and attenuation. Thoracic aorta: The thoracic aorta is normal in caliber and demonstrates standard 3-vessel arch anatomy. No dissection is seen. There is approximately 50% focal stenosis of the proximal left subclavian artery secondary to soft plaque. Pulmonary vasculature: The pulmonary trunk is normal in caliber. There are no filling defects identified in the main, lobar, or segmental pulmonary arteries to indicate pulmonary embolus. Heart: The heart is top normal in size and there is trace pericardial effusion. The coronary arteries are densely calcified. Lungs and pleural spaces: A tracheostomy is in place. There is a moderate right anterior and basilar pneumothorax. There is no airspace consolidation typical for pneumonia or pleural effusion. The trachea and central airways are clear. No concerning pulmonary lesion is identified. Mediastinum: There is no mediastinal lymphadenopathy. [place]: Clear. Axillae: There is no axillary lymphadenopathy. Bony thorax: No lytic or blastic lesions are identified. ABDOMEN AND PELVIS: Liver: The contrast-enhanced liver is normal in size, contour, and attenuation. There is no intrahepatic or ductal dilatation. The hepatic veins and portal veins are patent. Gallbladder: The gallbladder is distended. The gallbladder wall appears mildly thickened and hyperemic. No calcified gallstones are identified. And there is no significant surrounding inflammation. Spleen: Normal in size and attenuation. Pancreas: Unremarkable. Adrenal glands: Unremarkable. Kidneys: The contrast enhanced kidneys are normal in size and. There is mild l eft-sided hydronephrosis with no obstructing lesion seen. The kidneys enhance symmetrically. There is a 4 mm nonobstructing calculus in the lower pole of the left kidney. Abdominal vasculature: The abdominal aorta is normal in course and caliber noting mild atherosclerotic calcification. Bowel: There is a small to moderate hiatal hernia. A gastrostomy tube is present in the distal stomach. The duodenum is normal in configuration. No bowel obstruction is seen. The appendix is well-visualized and normal. Peritoneum: There is no intraperitoneal free air or abdominal ascites. Lymphadenopathy: None. Pelvic viscera: The prostate gland is enlarged, measuring 6.1 cm in transverse diameter. The bladder is decompressed and grossly unremarkable Skeletal structures: A 1 cm bone island is noted in the right aspect of the sacrum. No lytic or blastic lesions are seen. IMPRESSION: 1. There is no evidence of pulmonary embolus in the main, lobar, or segmental pulmonary arteries. 2. Moderate right-sided pneumothorax. 3. There is no airspace consolidation or pleural effusion. 4. There is no evidence of metastatic disease in the chest, abdomen, or pelvis. 5. The gallbladder is distended and the wall appears mildly thickened and hyperemic. No significant inflammation is seen. This is of indeterminate significance, and if there is clinical concern for acute cholecystitis a right upper quadrant ultrasound should be considered. 6. Prostatomegaly. 7. Left-sided nephrolithiasis. 8. There is mild left-sided hydronephrosis with no obstructing lesion seen. This may have minimally increased from the 04/18/2019 PET examination. A UPJ type obstruction could have this appearance. Consider nonemergent follow-up with urology. 9. Additional findings as above. Electronically signed by: Vance Pineda M.D. 08/03/2019 8:21 AM Dictated: 08/03/19 0743 Transcribed: 08/03/[address] ANGIOGRAM OF THE CHEST; CT SCAN OF THE ABDOMEN AND PELVIS WITH IV CONTRAST CLINICAL HISTORY: Head and neck cancer. Dyspnea. Generalized abdominal pain. COMPARISON STUDY: Chest x-ray dated 08/02/2019. PET/CT dated 04/18/2019. TECHNIQUE: Following the IV administration of 118 of Optiray 320, CT angiogram of the chest is performed from the upper abdomen to the thoracic inlet utilizing the pulmonary embolus protocol. Images are reviewed in the axial, sagittal, coronal planes. 3-D MIPS images are created and assessed. Subsequently, CT scan of the abdomen and pelvis was performed from the lung bases to the proximal femora. Images are reviewed in the axial, sagittal, and coronal planes. IV contrast was administered without complication. A dose lowering technique was utilized adhering to the principles of ALARA. CT DOSE: 1579.20 mGy.cm FINDINGS: CHEST: Thyroid: Imaged portions of the thyroid gland are normal in size and attenuation. Thoracic aorta: The thoracic aorta is normal in caliber and demonstrates standard 3-vessel arch anatomy. No dissection is seen. There is approximately 50 % focal stenosis of the proximal left subclavian artery secondary to soft plaque. Pulmonary vasculature: The pulmonary trunk is normal in caliber. There are no filling defects identified in the main, lobar, or segmental pulmonary arteries to indicate pulmonary embolus. Heart: The heart is top normal in size and there is trace pericardial effusion. The coronary arteries are densely calcified. Lungs and pleural spaces: A tracheostomy is in place. There is a moderate right anterior and basilar pneumothorax. There is no airspace consolidation typical for pneumonia or pleural effusion. The trachea and central airways are clear. No concerning pulmonary lesion is identified. Mediastinum: There is no mediastinal lymphadenopathy. [place]: Clear. Axillae: There is no axillary lymphadenopathy. Bony thorax: No lytic or blastic lesions are identified. ABDOMEN AND PELVIS: Liver: The contrast-enhanced liver is normal in size, contour, and attenuation. There is no intrahepatic or ductal dilatation. The hepatic veins and portal veins are patent. Gallbladder: The gallbladder is distended. The gallbladder wall appears mildly thickened and hyperemic. No calcified gallstones are identified. And there is no significant surrounding inflammation. Spleen: Normal in size and attenuation. Pancreas: Unremarkable. Adrenal glands: Unremarkable. Kidneys: The contrast enhanced kidneys are normal in size and. There is mild left-sided hydronephrosis with no obstructing lesion seen. The kidneys enhance symmetrically. There is a 4 mm nonobstructing calculus in the lower pole of the left kidney. Abdominal vasculature: The abdominal aorta is normal in course and caliber noting mild atherosclerotic calcification. Bowel: There is a small to moderate hiatal hernia. A gastrostomy tube is present in the distal stomach. The duodenum is normal in configuration. No bowel obstruction is seen. The appendix is well-visualized and normal. Peritoneum: There is no intraperitoneal free air or abdominal ascites. Lymphadenopathy: None. Pelvic viscera: The prostate gland is enlarged, measuring 6.1 cm in transverse diameter. The bladder is decompressed and grossly unremarkable Skeletal structures: A 1 cm bone island is noted in the right aspect of the sacrum. No lytic or blastic lesions are seen. IMPRESSION: 1. There is no evidence of pulmonary embolus in the main, lobar, or segmental pulmonary arteries. 2. Moderate right-sided pneumothorax. 3. There is no airspace consolidation or pleural effusion. 4. There is no evidence of metastatic disease in the chest, abdomen, or pelvis. 5. The gallbladder is distended and the wall appears mildly thickened and hyperemic. No significant inflammation is seen. This is of indeterminate significance, and if there is clinical concern for acute cholecystitis a right upper quadrant ultrasound should be considered. 6. Prostatomegaly. 7. Left-sided nephrolithiasis. 8. There is mild left-sided hydronephrosis with no obstructing lesion seen. This may have minimally increased from the 04/18/2019 PET examination. A UPJ type obstruction could have this appearance. Consider nonemergent follow-up with urology. 9. Additional findings as above. Electronically signed by: Vance Pineda M.D. 08/03/2019 8:21 AM Dictated: 08/03/1943 Transcribed: 08/03/19743 XR chest 1V portable CLINICAL HISTORY: pneumothorax COMPARISON STUDY: 08/02/2019 FINDINGS: The cardiac and mediastinal contours remain stable. A tracheostomy tube is again visualized. There is slight interval decrease in the size of the right apical pneumothorax which currently has a pleural separation of 26 mm. There is no lobar consolidation.[ IMPRESSION: Slight interval decrease in the size of the right pneumothorax which has a pleural separation of 26 mm. Electronically signed by: Elliot Levy M.D. 08/03/2019 4:55 PM Dictated: 08/03/191653 Transcribed: 08/03/191653 XR chest 1V portable HISTORY: 54 years-old Male pneumothorax follow-up study in a patient with reported pneumothorax COMPARISON: Chest radiograph 08/03/2019 TECHNIQUE: Portable AP view of the chest FINDINGS: Tracheostomy cannula overlies the midline, distal tip terminating 2.3 cm superior to the [place]. Cardiomediastinal and hilar silhouettes are unchanged. Tortuosity of the descending thoracic aorta. Small right apical pneumothorax has slightly decreased in size from comparison study now with pleural separation of 2.2 cm, previously 2.6 cm. Mild right hemidiaphragmatic elevation. No pleural effusion, overt pulmonary edema or lobar airspace consolidation. IMPRESSION: Mildly decreased size of the small right apical pneumothorax. The above report was generated using voice recognition software. It may contain grammatical, syntax or spelling errors. Electronically signed by: Duarte Parisi M.D. 08/04/2019 7:07 AM Dictated: 08/04/19704 Transcribed: 08/04/19704 Hospital Course (1) SOB (shortness of breath): Multifactorial: Recurrent pneumothorax (3rd episode, past history chest tube placement) hx laryngeal cancer sp chemoradiation sp tracheostomy tube Aspiration pneumonitis, possible sepsis Poor appetite, nausea, emesis Possible side effect from recent Fentanyl patch Rx hypertension, stable hyperlipidemia on statin Rx PVD as per records hx prediabetes, hemoglobin A1c of 5.01 Mar 2019 past tobacco abuse Erbitux rash, slow improvement on ongoing Doxycycline and topical rx as per patient Medical telemetry CT surgery consult RE recurrent pneumothorax Cultures, IV Unasyn for now for possible aspiration pneumonitis Decrease Fentanyl patch dose for now Continue Doxycycline course for Erbitux rash; inquire from patient's oncologist about possible steroid course for Erbitux rash DVT prophylaxis. Lovenox subcu Full code Case discussed with Dr. Alicea (CT surgeon workers compensation claims adjuster). Chest tube placement to be done in a.m. (2) Weakness: Possible related with narcotic vs recurrent pneumothorax vs aspiration pneumonitis CXR showed moderate right pneumothorax. CTA chest showed no evidence of pulmonary embolus in the main, lobar, or segmental pulmonary arteries. Moderate right-sided pneumothorax. WBC on admission elevated, now back to normal Procalcitonin wnl, blood cx no growth On IV Unasyn for now, will transition to augmentin Pneumothorax CXR showed moderate right pneumothorax CT chest showed moderate right-sided pneumothorax. Thoracic surgery on board recommended conservative management for now Repeat CXR in the morning showed mildly decreased size of the small right apical pneumothorax. Saturated well on RA Case discussed with Dr. Alicea and OK from thoracic surgery standpoint to discharge home Laryngeal carcinoma S/P tracheostomy Follow up with dr. Rabago oncologist Rash Continue doxycycline Continue Prednisone Rash improves significantly HTN BP stable Continue Lisinopril Hx CVA Continue Statin and aspirin Stable DVT px on Lovenox CODE STATUS FULL CODE Disposition Will discharge home today Total Time Total Time Spent Total Time Spent (In Minutes): 35 minutes Total Time Includes: Examination of the Patient, Discharge Planning, Medication Reconciliation, Communication With Other Providers and Other Discharge Plan Discharge Items Patient Disposition: Home - Self-Care Reason For Visit: R PNEUMOTHORAX Discharge Diagnosis: SOB (shortness of breath) Weakness Pneumothorax Laryngeal carcinoma Hypertension HX CVA Activity: Resume your previous activity Activity Comment: As tolerated Non-emergency contact: Primary Care Provider, Surgeon and Oncologist Call non-emergency contact if: you have any medication questions and your temperature is above 101 Follow-up/Referrals: Karley Morris DO [Primary Care Provider] - Diet: Heart Healthy Diet Comment: Peg tube feeding Addtl Attending Provider Instructions: Follow up with your primary care provider Siri Gamble PA-C on 08/08 @ 12:45 PM Follow up with thoracic surgeon Dr. Alicea next week ( Please call to schedule for the appointment) Continue follow up with your Oncology Complete the course of the antibiotic Fall precaution Continue Tracheotomy daily care Fentanyl decreased to 12mcg every 3 days as needed Do no drive or operate any machine while on Fentanyl Please hold the next fentanyl patch if you become drowsy or lethargy Pending Studies at Discharge: No Stand-Alone Forms: My [facility] Medications and DC Order Prescriptions: New prednisone 20 mg Tablet 40 mg G-tube DAILY 5 Days Qty: 10 RF: 0 amoxicillin-pot clavulanate 875-125 mg Tablet 1 tab PO BIDM 4 Days Qty: 8 RF: 0 fentanyl 12 mcg/hr Patch 72 Hour 12 mcg transdermal Q3D Qty: 2 RF: 0 Continued morphine concentrate 100 mg/5 mL (20 mg/mL) solution 10 mg PO Q4H PRN (Reason: pain) RF: 0 sertraline 20 mg/mL concentrate 25 mg feeding tube DAILY RF: 0 ondansetron HCl [Zofran] 8 mg Tablet 8 mg PO Q8 PRN (Reason: Nausea And Vomiting) RF: 0 atorvastatin 80 mg Tablet 80 mg PO HS RF: 0 dronabinol [Marinol] 5 mg Capsule 5 mg PO BIDM RF: 0 clopidogrel 75 mg Tablet 75 mg PO QAM RF: 0 pantoprazole 20 mg Tablet,Delayed Release (Dr/Ec) 20 mg PO DAILYBB RF: 0 lorazepam 0.5 mg Tablet 0.5 mg PO TID PRN (Reason: ANXIETY) RF: 0 lisinopril 10 mg Tablet 10 mg feeding tube QAM RF: 0 promethazine 25 mg Tablet 25 mg PO Q4H PRN (Reason: Nausea) RF: 0 tizanidine [Zanaflex] 4 mg Capsule 4 - 8 mg feeding tube HS RF: 0 omega 1-hqx-ahm-fish oil [Fish Oil] 1,000 mg (120 mg-180 mg) Capsule 1 cap PO BID RF: 0 Aimovig Autoinjector 140 mg/mL Auto-Injector 140 mg SUBCUT MONTHLY RF: 0 doxycycline hyclate 100 mg capsule 100 mg feeding tube BID RF: 0 aspirin 81 mg Tablet,Delayed Release (Dr/Ec) 81 mg feeding tube QAM RF: 0 Prostate Health 160-100-100 mg-unit-mcg Tablet 1 tab PO DAILY RF: 0 Pepcid Complete 10-800-165 mg Tablet,Chewable 1 tab feeding tube DIRECTED PRN (Reason: Heartburn) RF: 0 Discontinued fentanyl 25 mcg/hr Patch 72 Hour 1 patch TRANSDERMAL Q72H RF: 0 Discharge Orders: Discharge Order (Routine); Ordered 08/04/19 Ordered By: Vivian Baird Admission Data Admit Date/Time: 08/03/19 05:06 Attending Provider: Vivian Baird Admit Provider: John Lockett Primary Care Provider: Karley Morris Other Providers: John Lockett ; John Alicea Other Interventions: Discharge Summary Assessment (RN) Last Done: 08/04/19 15:09 DC Date/Time DO NOT enter until pt leaves facility: 08/04/19 15:40
== END 2019-08-04 15:40 | disposition home or self-care (01) | DRG 199 ==
LOC: 2N 20:50 → ED 20:50 → 2N 08-03 03:40